=== PATIENT | male | born 1945 | race Caucasian/White ===

== ENCOUNTER 2018-11-12 00:01 | Emergency (ER) | payer OTHER, MEDICAID ==
[~2018-11-12] VITALS: Ht 167.6 cm; Wt 72.6 kg
[2018-11-12 00:05] VITALS: BP_SYST 134
[2018-11-12] MEDS ORDERED: INSU100V11 SQ (00:18)
[2018-11-12] MEDS ORDERED: AMLO5TAB4 PO (00:18)
[2018-11-12] MEDS ORDERED: GLU500 PO (00:18)
[2018-11-12] MEDS ORDERED: NEO/5DRO7 OP (00:18)
[2018-11-12] MEDS ORDERED: KETO60CR2 TP (00:18)
[2018-11-12] MEDS ORDERED: ASPI-1153 PO (00:18)
[2018-11-12] MEDS ORDERED: INSU100V7 IJ (00:18)
[2018-11-12] MEDS ORDERED: TRIA15CR3 TP (00:18)
[2018-11-12] MEDS ORDERED: LIP80 PO (00:18)
[2018-11-12] MEDS ORDERED: CLOP75TA32 PO (00:18)
[2018-11-12] MEDS ORDERED: IPRA3AMP9 INH (00:18)
[2018-11-12] MEDS ORDERED: PRO40 PO (00:18)
[2018-11-12] MEDS ORDERED: CORCR10 PO (00:18)
[2018-11-12] MEDS ORDERED: NACL 0.9% 1,000 ML IV ONE (01:07)
[2018-11-12 02:08] LABS: PLATELET COUNT (AUTO) 256 K/uL (130-430)
[2018-11-12 02:14] LABS: BASOPHILS % (AUTO) 0.3 % (0.0-2.0); EOSINOPHILS # (AUTO) 0.2 K/uL (0.0-0.4); EOSINOPHILS % (AUTO) 2.1 % (0.0-4.0); HEMATOCRIT 42.2 % (36-54); HEMOGLOBIN 13.5 g/dL (14.0-18.0); LYMPHOCYTES # (AUTO) 1.5 K/uL (1.0-5.5); LYMPHOCYTES % (AUTO) 13.9 % (20.5-51.5); MEAN CORPUSCULAR HEMOGLOBIN 29 pg (27-31); MEAN CORPUSCULAR HGB CONC 32 % (32-36); MEAN CORPUSCULAR VOLUME 89 fL (79.0-98.0); MONOCYTES # (AUTO) 1.1 K/uL (0.0-1.0); MONOCYTES % (AUTO) 10.6 % (1.7-9.3); NEUTROPHILS # (AUTO) 7.7 K/uL (1.8-7.7); NEUTROPHILS % (AUTO) 73.1 % (40.0-70.0); RED BLOOD CELL COUNT(AUTO) 4.72 MIL/uL (4.2-6.2); WHITE BLOOD COUNT (AUTO) 10.5 K/uL (4.8-10.8)
[2018-11-12 02:23] LABS: ALANINE AMINOTRANSFERASE 20 U/L (12-78); ALBUMIN 3.5 g/dL (3.4-4.8); ANION GAP 5 (5-15); ASPARTATE AMINOTRANSFERASE 15 U/L (10-37); CHLORIDE 102 mmol/L (98-107); CREATININE 0.65 mg/dL (0.55-1.30); GLUCOSE 111 mg/dL (70-99); LIPASE 106 U/L (73-393); SODIUM SERUM 140 mmol/L (136-145); TOTAL BILIRUBIN 0.2 mg/dL (0.0-1.0); UREA NITROGEN, BLOOD 19 mg/dL (8-21)
[2018-11-12 02:36] LABS: CALCIUM 8.5 mg/dL (8.4-11.0)
[2018-11-12] MEDS ORDERED: SULFAMETHOXAZOLE/TRIMETHOPR DS 1 TABLET PO ONE (04:00)
[2018-11-12 04:45] VITALS: BP_SYST 134
== END 2018-11-12 04:45 | disposition home or self-care (01) ==
LOC: SED 00:01
DX: R10.84 Generalized abdominal pain (principal); R30.0 Dysuria; R53.1 Weakness; E11.9 Type 2 diabetes mellitus without complications; I10 Essential (primary) hypertension; E78.00 Pure hypercholesterolemia, unspecified; F17.200 Nicotine dependence, unspecified, uncomplicated; Z71.6 Tobacco abuse counseling; Z88.0 Allergy status to penicillin; Z79.899 Other long term (current) drug therapy; Z79.82 Long term (current) use of aspirin
CPT/HCPCS: 36415; 80053; 83690-TC; 85025; 99284

== ENCOUNTER 2018-12-15 10:39 | Inpatient (IN) | payer OTHER, MEDICAID ==
[~2018-12-15] VITALS: Ht 165.1 cm; Wt 72.6 kg
[2018-12-15 10:39] VITALS: BP_SYST 146
[~2018-12-15 10:39] MED LIST: AMLO5TAB4 PO; ASPI-1153 PO; CLOP75TA32 PO; CORCR10 PO; GLU500 PO; INSU100V11 SQ; INSU100V7 IJ; IPRA3AMP9 INH; KETO60CR2 TP; LIP80 PO; NEO/5DRO7 OP; PRO40 PO; TRIA15CR3 TP
--- NOTE | 2018-12-15 10:40 | NUR ---
BROUGHT IN BY [facility], PLACED IN BED #[address] RT AND DR CALDWELL AT BEDSIDE.
[2018-12-15] MEDS ORDERED: methylPREDNISolone SOD SUCC/PF 62.5 MG/ML VIAL IVP ONE (10:45)
[2018-12-15] MEDS ORDERED: IPRATROPIUM/ALBUTEROL SULFATE 3 ML AMPUL.NEB (DUONEB) INH ONE (10:45)
--- NOTE | 2018-12-15 10:45 | NUR ---
Pt BIBA from [facility] c/o SOB. Pt states he is a smoker and smokes 3 cigarettes per day. Noted adventitious lung sounds. Pt arrived with 8L, and placed on 2L O2 via NC, currently saturating 95%. No other complaints or injuries per pt or noted.
[2018-12-15] MEDS ORDERED: MAGNESIUM SULFATE 50 ML IV ONE (11:00)
[2018-12-15 11:05] LABS: BASOPHILS % (AUTO) 0.3 % (0.0-2.0); EOSINOPHILS # (AUTO) 0.1 K/uL (0.0-0.4); EOSINOPHILS % (AUTO) 1.4 % (0.0-4.0); HEMATOCRIT 39.3 % (36-54); HEMOGLOBIN 12.2 g/dL (14.0-18.0); LYMPHOCYTES # (AUTO) 1.2 K/uL (1.0-5.5); LYMPHOCYTES % (AUTO) 17.9 % (20.5-51.5); MEAN CORPUSCULAR HEMOGLOBIN 27 pg (27-31); MEAN CORPUSCULAR HGB CONC 31 % (32-36); MEAN CORPUSCULAR VOLUME 87 fL (79.0-98.0); MONOCYTES # (AUTO) 0.8 K/uL (0.0-1.0); NEUTROPHILS # (AUTO) 4.8 K/uL (1.8-7.7); NEUTROPHILS % (AUTO) 68.4 % (40.0-70.0); PLATELET COUNT (AUTO) 217 K/uL (130-430); RED BLOOD CELL COUNT(AUTO) 4.51 MIL/uL (4.2-6.2); RED CELL DISTRIBUTION WIDTH 16.3 % (9.0-15.0)
[2018-12-15 11:21] LABS: CHLORIDE 100 mmol/L (98-107); CREATININE 0.82 mg/dL (0.55-1.30); GLUCOSE 168 mg/dL (70-99); POTASSIUM 4.2 mmol/L (3.5-5.1); SODIUM SERUM 138 mmol/L (136-145); UREA NITROGEN, BLOOD 21 mg/dL (8-21)
[2018-12-15 11:22] LABS: ANION GAP < 3 (5-15)
[2018-12-15 11:26] LABS: ALANINE AMINOTRANSFERASE 39 U/L (12-78); ALBUMIN 3.3 g/dL (3.4-4.8); ASPARTATE AMINOTRANSFERASE 20 U/L (10-37); TOTAL BILIRUBIN 0.3 mg/dL (0.0-1.0)
--- NOTE | 2018-12-15 11:32 | NUR ---
ER Dr. Benites at bedside examining patient.
--- NOTE | 2018-12-15 12:10 | NUR ---
per dr. granados, dr. gill contacted him regarding pt. Dr. granados paged back to speak to dr. clark regarding pt status for possible admission.
[2018-12-15] MEDS ORDERED: IPRA3AMP9 INH (12:32)
[2018-12-15] MEDS ORDERED: TYC3 PO (12:32)
[2018-12-15] MEDS ORDERED: GUAI-1081 PO (12:32)
--- NOTE | 2018-12-15 12:32 | NUR ---
Medication reconciliation completed with information provided by [facility]. Any prior medication reconciliation on file was reviewed and corrected.
--- NOTE | 2018-12-15 12:45 | NUR ---
Patient is unable to participate in end of life decisions making at this time. We are unable to contact family or power of personal injury attorney for healthcare and there are no code status forms on the chart. At this time the patient will be treated as full code on the basis of implied consent.
--- NOTE | 2018-12-15 12:47 | NUR ---
Belongings inventoried. Pt states no pain or distress at this time. Resting comfortably, currently on 2L O2 via NC.
--- NOTE | 2018-12-15 13:05 | NUR ---
ADMISSION NOTE Received patient from ER via millie, received report from MARIA G YANG. Patient admitted with diagnosis of COPD EXACERBATION. Patient oriented to hospital routine, call light, toileting and safety-patient verbalized understanding.
[2018-12-15] MEDS ORDERED: D5W 1,000 ML IV PRN (13:14)
[2018-12-15] MEDS ORDERED: ONDANSETRON HCL 4 MG/2 ML VIAL IVP PRN (13:15)
[2018-12-15] MEDS ORDERED: guaiFENesin 200 MG/10 ML UDC PO PRN (13:15)
[2018-12-15] MEDS ORDERED: GLUCOSE 15 GM GEL (in 37.5 GM TUBE) PO PRN (13:15)
[2018-12-15] MEDS ORDERED: ALBUTEROL SULFATE 0.083% 2.5 MG/3 ML VIAL.NEB INH PRN (13:15)
[2018-12-15] MEDS ORDERED: DEXTROSE 50% JECT 50 ML DISP.SYRIN IVP PRN (13:15)
[2018-12-15] MEDS ORDERED: IPRATROPIUM BROM 0.5 MG/2.5 ML VIAL.NEB (ATROVENT) INH PRN (13:15)
[2018-12-15] MEDS ORDERED: ACETAMINOPHEN 325 MG TABLET PO PRN (13:15)
[2018-12-15] MEDS ORDERED: ACETAMINOPHEN/CODEINE 300 MG-30 MG TABLET PO SCH (13:15)
[2018-12-15] MEDS ORDERED: ZOLPIDEM TARTRATE 5 MG TABLET PO PRN (13:15)
[2018-12-15] MEDS ORDERED: guaiFENesin/DEXTROMETHORPHAN 10 ML UDC PO PRN (13:15)
[2018-12-15] MEDS ORDERED: cloNIDine HCL 0.1 MG TABLET PO PRN (13:15)
--- NOTE | 2018-12-15 13:18 | NUR ---
Patient will be admitted to care of Dr. Sheehan. Admitted to telemetry unit. Will go to room 119A. Belongings list completed. Summary report printed. Report given at bedside.
[2018-12-15 13:19] VITALS: BP_SYST 119
[2018-12-15] MEDS ORDERED: ACETAMINOPHEN/CODEINE 300 MG-30 MG TABLET PO PRN (13:36)
--- NOTE | 2018-12-15 14:00 | NUR ---
Report received from AN SBAR report received from admission nurse, patient received lying comfortably in his bed, on 02 at 2lpm via NC, noted with congestion, denies any difficulty breathing. Alert, awake and verbally responsive. Denies any pain or discomfort at this time. IV line intact and in place. Discussed plan of care and importance of using call light, patient verbalized understanding. Call light within the reach. Bed alarm on, bed at lowest position. Will continue to monitor.
--- NOTE | 2018-12-15 14:03 | NUR ---
CONSULTATION CALLED FOR TRAY MALIK DR WILL BE COVER FOR DR FELIZ ORDER BY EMMY JEAN-BAPTISTE FOR CONSULT OF COPD SPOKE WITH LOS
--- NOTE | 2018-12-15 14:30 | NUR ---
Dr. Parmar called Received a call from Dr. Parmar notified regarding consult, no new order at this time. Addendum: 12/15/18 at 1852 by Jaime Watkins RN disregard, wrong time
[2018-12-15] MEDS: LEVOFLOXACIN 500 MG/D5W 100 ML IV SCH (14:35)
[2018-12-15] MEDS: NACL 0.9% 1,000 ML IV SCH (14:35)
[2018-12-15] MEDS: methylPREDNISolone SOD SUCC/PF 62.5 MG/ML VIAL IVP SCH ×2 (14:36→21:19)
[2018-12-15] MEDS: IPRATROPIUM BROM 0.5 MG/2.5 ML VIAL.NEB (ATROVENT) INH SCH ×2 (15:00→19:40)
[2018-12-15] MEDS: ALBUTEROL SULFATE 0.083% 2.5 MG/3 ML VIAL.NEB INH SCH ×2 (15:00→19:40)
[2018-12-15] MEDS: NEO/POLYMYX B SULF/DEXAMETH 5 ML OPHT. DROPS.SUSP OP SCH ×2 (15:00→21:00)
--- NOTE | 2018-12-15 16:30 | NUR ---
RN ROUNDS Patient remain to be alert, awake and verbally responsive. Denies any pain or discomfort at this time. IVF intact and in place, IVF infusing well. Bed at lowest position, bed alarm on . Call light within the reach.
--- NOTE | 2018-12-15 16:40 | NUR ---
Dr. Parmar called Received a call from Dr. Parmar notified regarding consult, no new order at this time.
[2018-12-15 17:45] VITALS: BP_SYST 112
[2018-12-15] MEDS: metFORMIN HCL 500 MG TABLET PO SCH (18:30)
--- NOTE | 2018-12-15 18:54 | NUR ---
Closing Notes Patient sitting at the edge of the bed, denies any pain or discomfort. On 02 at 2lpm via NC, no sob, no acute distress, still noted with slight congestion, respiration even and unlabored. IVF infusing well, IV line intact and in place. Fall precaution observed. Bed at lowest position. Bed alarm on. Will endorse to the next shift.
--- NOTE | 2018-12-15 19:25 | NUR ---
Opening note Received patient awake, AOx4. Patient is resting in bed and has 2L NC. IVF infusing via IV to LAC. He speaks Urdu and inquired about an oxygen extension for ambulation to restroom; I reminded him he has the urinal at bedside and was instructed on use of the call light. Bed is locked in lowest position, bed alarm on, side rails up 2x. Updated board and reviewed plan of care.
--- NOTE | 2018-12-15 19:47 | NUR ---
Breathing Tx Patient receiving breathing treatment given by RT.
[2018-12-15 20:00] VITALS: BP_SYST 132
--- NOTE | 2018-12-15 20:28 | NUR ---
Dr. Agata Parmar at bedside to evaluate patient.
[2018-12-15] MEDS: ATORVASTATIN 20 MG TABLET PO SCH (21:17)
[2018-12-15] MEDS: CARVEDILOL 6.25 MG TABLET (COREG) PO SCH (21:18)
--- NOTE | 2018-12-15 21:20 | NUR ---
Medications Due medications given. Patient swallowed tablets without difficulty. Educated on indications and side effects, he verbalized understanding. He requested lights off. safety precautions in place, call light w/in reach.
[2018-12-15 23:53] VITALS: BP_SYST 122
--- NOTE | 2018-12-16 00:24 | NUR ---
Rounds Patient is resting w/ eyes closed, nonlabored breathing, IVF infusing well. Call light w/in reach.
--- NOTE | 2018-12-16 02:20 | NUR ---
Rounds Patient is resting w/ eyes closed, symmetrical rise and fall of chest,nonlabored breathing. Call light w/in reach, continue to monitor.
[2018-12-16] MEDS: NACL 0.9% 1,000 ML IV SCH (04:37)
--- NOTE | 2018-12-16 04:40 | NUR ---
IVF IVF empty, hung new bag of NS and infusing as ordered at 80 ml/hr. Patient was coughing and was given Robitussin for cough as ordered. Will continue to monitor.
--- NOTE | 2018-12-16 06:15 | NUR ---
Paged Dr. Sheehan
[2018-12-16] MEDS: methylPREDNISolone SOD SUCC/PF 62.5 MG/ML VIAL IVP SCH (06:36)
--- NOTE | 2018-12-16 06:45 | NUR ---
Closing note Due medication given, solumedrol. Awaiting call back from Dr. Sheehan to request order for fingerstick blood glucose test. Presently FBGT done with result of 139 mg/dL. IVF infusing as ordered. Needs met throughout shift, Will endorse to oncoming nurse.
--- NOTE | 2018-12-16 06:59 | NUR ---
Nutrition Update Evan Scale 18 noted. Pt admitted for Acute COPD exacerbation Diet: [facility] BMI: 26.6 kg/m2 RD to follow per nutrition care standards.
[2018-12-16] MEDS: ALBUTEROL SULFATE 0.083% 2.5 MG/3 ML VIAL.NEB INH SCH ×4 (07:09→20:13)
[2018-12-16] MEDS: IPRATROPIUM BROM 0.5 MG/2.5 ML VIAL.NEB (ATROVENT) INH SCH ×4 (07:09→20:13)
[2018-12-16 07:24] LABS: ANION GAP 2 (5-15); CALCIUM 8.1 mg/dL (8.4-11.0); CHLORIDE 100 mmol/L (98-107); CREATININE 0.73 mg/dL (0.55-1.30); GLUCOSE 152 mg/dL (70-99); POTASSIUM 4.5 mmol/L (3.5-5.1); SODIUM SERUM 139 mmol/L (136-145); UREA NITROGEN, BLOOD 22 mg/dL (8-21)
--- NOTE | 2018-12-16 07:30 | NUR ---
OPENING NOTES: RECEIVED PATIENT FROM STRING CUTTER NURSE. PATIENT IS AWAKE AND ALERT x4 LAYING DOWN IN BED. PATIENT IS TOLERATING OXYGEN ON 2 L NASAL CANNULA. IV SITE IS PATENT WITH NO SIGNS OF INFILTRATION AND RUNNING FLUIDS ORDERED. PATIENT IN STABLE CONDITION. SAFETY, FALL AND ASPIRATION PRECAUTIONS ARE IN PLACE. BED LOCKED IN LOWEST POSITION WITH CALL LIGHT IN REACH. WILL CONTINUE TO MONITOR PATIENT FOR ANY CHANGES.
[2018-12-16 08:07] VITALS: BP_SYST 133
[2018-12-16] MEDS: LEVOFLOXACIN 500 MG/D5W 100 ML IV SCH (08:26)
[2018-12-16] MEDS: PANTOPRAZOLE SODIUM 40 MG TAB PO SCH (08:26)
[2018-12-16] MEDS: NEO/POLYMYX B SULF/DEXAMETH 5 ML OPHT. DROPS.SUSP OP SCH ×3 (08:26→21:00)
[2018-12-16] MEDS: metFORMIN HCL 500 MG TABLET PO SCH ×2 (08:27→17:26)
[2018-12-16] MEDS: CLOPIDOGREL BISULFATE 75 MG TABLET PO SCH (08:27)
[2018-12-16] MEDS: ASPIRIN 81 MG TABLET(ECOTRIN) PO SCH (08:27)
[2018-12-16] MEDS: amLODIPine BESYLATE 5 MG TABLET PO SCH (08:27)
[2018-12-16] MEDS: CARVEDILOL 6.25 MG TABLET (COREG) PO SCH ×2 (08:28→21:01)
[2018-12-16] MEDS ORDERED: KETOCONAZOLE 2%, 60 GM TOPICAL CREAM. (NIZORAL) TP SCH ×2 (09:00→11:08)
--- NOTE | 2018-12-16 09:10 | NUR ---
MD CALLED: SPOKE WITH DR. BOOTH REGARDING PATIENT NEEDING AN ORDER FOR ACCUCHECKS AND DVT PROPHYLAXIS. MD AWARE OF PATIENT'S CONDITION. NEW ORDERS GIVEN.
--- NOTE | 2018-12-16 10:15 | NUR ---
RN ROUNDS: PATIENT IS AWAKE AND ALERT x4 LAYING IN BED. PATIENT IS TOLERATING OXYGEN AT 2 L NASAL CANNULA. PATIENT DENIES ANY PAIN AT THE MOMENT. PATIENT IN STABLE CONDITION. WILL CONTINUE TO MONITOR PATIENT FOR ANY CHANGES.
[2018-12-16 11:28] VITALS: BP_SYST 118
[2018-12-16] MEDS: INSULIN LISPRO SLIDING SCALE 100 UNITS/ML VIAL (humaLOG) SUBCUT PRN ×2 (11:33→21:17)
--- NOTE | 2018-12-16 12:15 | NUR ---
RN ROUNDS: PATIENT IS AWAKE AND ALERT x 4 LAYING IN BED. NO SIGNS OF DISTRESS OR SHORTNESS OF BREATH NOTED. PATIENT TOLERATING OXYGEN AT 2 L NASAL CANNULA. PATIENT IN STABLE CONDITION. WILL CONTINUE TO MONITOR PATIENT FOR ANY CHANGES.
[2018-12-16] MEDS: TRIAMCINOLONE ACETONIDE 0.1% 15 GM CREAM.GM. TP SCH ×2 (12:54→21:00)
--- NOTE | 2018-12-16 12:55 | NUR ---
PAIN: PATIENT STATES HE IS HAVING ABDOMINAL PAIN 6/10. PRN PAIN MEDS GIVEN. WILL FOLLOW UP FOR EFFECTIVENESS.
[2018-12-16] MEDS ORDERED: methylPREDNISolone SOD SUCC/PF 62.5 MG/ML VIAL IVP SCH (14:00)
--- NOTE | 2018-12-16 14:20 | NUR ---
RN ROUNDS: PATIENT IS AWAKE AND ALERT x4 LAYING DOWN IN BED. PATIENT IS TOLERATING OXYGEN ON 2 L VIA NASAL CANNULA. PATIENT DENIES ANY PAIN AT THE MOMENT. PATIENT IN STABLE CONDITION. WILL CONTINUE TO MONITOR PATIENT FOR ANY CHANGES.
[2018-12-16] MEDS: methylPREDNISolone SOD SUCC 40 MG/ML VIAL IVP SCH ×2 (14:33→21:49)
[2018-12-16 15:31] VITALS: BP_SYST 124
--- NOTE | 2018-12-16 16:10 | NUR ---
RN ROUNDS: PATIENT IS AWAKE AND ALERT x4 LAYING IN BED. NO SIGNS OF DISTRESS OR SHORTNESS OF BREATH NOTED. PATIENT TOLERATING OXYGEN AT 2 L NASAL CANNULA. PATIENT IN STABLE CONDITION. WILL CONTINUE TO MONITOR PATIENT FOR ANY CHANGES.
--- NOTE | 2018-12-16 18:35 | NUR ---
CLOSING NOTES: PATIENT IS AWAKE AND ALERT x4 LAYING DOWN IN BED. PATIENT IS TOLERATING OXYGEN ON 2 L NASAL CANNULA. IV SITE IS PATENT WITH NO SIGNS OF INFILTRATION. PATIENT DENIES ANY PAIN AT THE MOMENT. NO SIGNS OF DISTRESS OR SHORTNESS OF BREATH NOTED. PATIENT IN STABLE CONDITION. SAFETY, FALL AND ASPIRATION PRECAUTIONS ARE IN PLACE. BED LOCKED IN LOWEST POSITION WITH CALL LIGHT IN REACH. WILL ENDORSE PATIENT CARE TO ONCOMING HEAVY EQUIPMENT MECHANIC NURSE.
[2018-12-16 20:00] VITALS: BP_SYST 113
--- NOTE | 2018-12-16 20:00 | NUR ---
ASSUMED CARE. RECEIVED ALERT,ORIENTED,WELSH SPEAKING ONLY. AFEBRILE, NOT IN ACUTE DISTRESS. NO PAIN OR DISCOMFORT NOTED. WITH SALINE LOCK TO THE LEFT AC # 20 INTACT. SAO2=93% ON 2 LPM O2 VIA NC. RT AT BEDSIDE TO GIVE BREATHING TREATMENT. SINUS RHYTHM @ 80'S/MINUTE ON THE NURSING SURGICAL SERVICES DIRECTOR. VITAL SIGNS ARE OTHERWISE STABLE. WILL CONTINUE TO MONITOR. NEEDS ATTENDED.
[2018-12-16] MEDS: ATORVASTATIN 20 MG TABLET PO SCH (21:01)
--- NOTE | 2018-12-16 21:01 | NUR ---
DUE MEDICATIONS GIVEN. REFUSED. TRIAMCINOLONE CREAM. MAXITROL OPHTHALMIC SOLUTION NOT AVAILABLE SEBASTIEN PYXIS AND PT'S CASSETTE. WILL ENDORSE TO AM SHIFT.
--- NOTE | 2018-12-16 21:17 | NUR ---
FINGERSTICK BLOOD SUGAR XHRTV=854. 2 UNITS OF HUMALOG SQ GIVEN PER SLIDING SCALE.
--- NOTE | 2018-12-17 | NUR ---
ASLEEP, NOT IN ANY KIND OF DISTRESS. NO PAIN OR DISCOMFORT NOTED. SIDE RAILS UP,CALL LIGHT WITHIN REACH.KEPT WARM AND COMFORTABLE.
[2018-12-17 01:03] VITALS: BP_SYST 111
--- NOTE | 2018-12-17 04:00 | NUR ---
ASLEEP,NOT IN ACUTE DISTRESS. NO PAIN OR DISCOMFORT. NO CHANGE IN CONDITION. WILL CONTINUE TO MONITOR.
[2018-12-17] MEDS: methylPREDNISolone SOD SUCC 40 MG/ML VIAL IVP SCH (06:05)
--- NOTE | 2018-12-17 06:05 | NUR ---
AWAKE, DUE MEDICATION GIVEN.
--- NOTE | 2018-12-17 06:25 | NUR ---
FINGERSTICK BLOOD SUGAR CHECK-137. NO INSULIN COVERAGE NEEDED. Addendum: 12/17/18 at 0650 by [facility] KARL TEACHER OF THE HEARING IMPAIRED CORRECTION: 148.
[2018-12-17] MEDS: IPRATROPIUM BROM 0.5 MG/2.5 ML VIAL.NEB (ATROVENT) INH SCH ×2 (07:17→11:10)
[2018-12-17] MEDS: ALBUTEROL SULFATE 0.083% 2.5 MG/3 ML VIAL.NEB INH SCH ×2 (07:17→11:10)
--- NOTE | 2018-12-17 07:20 | NUR ---
ENDORSED CARE TO HUGH GARLAND.
--- NOTE | 2018-12-17 07:57 | NUR ---
OPENING NOTES: RECEIVED PATIENT FROM REAL ESTATE LOAN PROCESSOR NURSE. PATIENT IS AWAKE AND ALERT x4 LAYING DOWN IN BED. PATIENT DENIES ANY PAIN AT THE MOMENT. NO SIGNS OF DISTRESS OR SHORTNESS OF BREATH NOTED. PATIENT IS TOLERATING OXYGEN AT 2L NASAL CANNULA. IV SITE IS PATENT WITH NO SIGNS OF INFILTRATION. PATIENT IN STABLE CONDITION. SAFETY, FALL AND ASPIRATION PRECAUTIONS ARE IN PLACE. BED LOCKED IN LOWEST POSITION WITH CALL LIGHT IN REACH. WILL CONTINUE TO MONITOR PATIENT FOR ANY CHANGES.
[2018-12-17 08:02] VITALS: BP_SYST 123
[2018-12-17] MEDS: NEO/POLYMYX B SULF/DEXAMETH 5 ML OPHT. DROPS.SUSP OP SCH ×2 (09:00→15:00)
[2018-12-17] MEDS: TRIAMCINOLONE ACETONIDE 0.1% 15 GM CREAM.GM. TP SCH (09:00)
[2018-12-17] MEDS: LEVOFLOXACIN 500 MG/D5W 100 ML IV SCH (09:03)
[2018-12-17] MEDS: CLOPIDOGREL BISULFATE 75 MG TABLET PO SCH (09:03)
[2018-12-17] MEDS: CARVEDILOL 6.25 MG TABLET (COREG) PO SCH (09:03)
[2018-12-17] MEDS: metFORMIN HCL 500 MG TABLET PO SCH (09:03)
[2018-12-17] MEDS: ASPIRIN 81 MG TABLET(ECOTRIN) PO SCH (09:03)
[2018-12-17] MEDS: amLODIPine BESYLATE 5 MG TABLET PO SCH (09:04)
[2018-12-17] MEDS: PANTOPRAZOLE SODIUM 40 MG TAB PO SCH (09:04)
--- NOTE | 2018-12-17 10:05 | NUR ---
RN ROUNDS: PATIENT IS AWAKE AND ALERT x4 SITTING AT THE SIDE OF THE BED. PATIENT DENIES ANY PAIN AT THE MOMENT. PATIENT IS TOLERATING OXYGEN AT 2 L VIA NASAL CANNULA. PATIENT IN STABLE CONDITION. WILL CONTINUE TO MONITOR PATIENT FOR ANY CHANGES.
[2018-12-17] MEDS: INSULIN LISPRO SLIDING SCALE 100 UNITS/ML VIAL (humaLOG) SUBCUT PRN (11:41)
--- NOTE | 2018-12-17 12:32 | NUR ---
RN ROUNDS: PATIENT IS AWAKE AND ALERT x4 LAYING IN BED. NO SIGNS OF DISTRESS OR SHORTNESS OF BREATH NOTED. PATIENT DENIES ANY PAIN AT THE MOMENT. PATIENT IN STABLE CONDITION. WILL CONTINUE TO MONITOR PATIENT FOR ANY CHANGES.
[2018-12-17 12:47] VITALS: BP_SYST 142
[2018-12-17] MEDS ORDERED: LEVO750T45 PO (12:55)
[2018-12-17] MEDS ORDERED: PRED20TA PO (12:56)
[2018-12-17 13:15] VITALS: BP_SYST 142
--- NOTE | 2018-12-17 14:10 | NUR ---
RN ROUNDS: PATIENT IS SITTING AT THE SIDE OF THE BED READY TO BE PICKED UP. PATIENT DENIES ANY PAIN AT THE MOMENT. NO SIGNS OF DISTRESS OR SHORTNESS OF BREATH NOTED. PATIENT IN STABLE CONDITION. WILL CONTINUE TO MONITOR PATIENT FOR ANY CHANGES.
--- NOTE | 2018-12-17 14:50 | NUR ---
DISCHARGE: CALLED [facility] AND SPOKE WITH SABINA REGARDING MANAGER OPERATIONS AND PROCUREMENT FOR THE PATIENT. SABNIA STATED THE CAR SHOULD BE HERE AFTER 2. WILL CONTINUE TO FOLLOW UP WITH SABINA.
--- NOTE | 2018-12-17 15:00 | NUR ---
D/C Patient: Patient given medication reconciliation form and D/C instructions. Exit Care provided. Patient verbalized understanding. MD discussed with patient the results and treatment provided. Ambulatory with steady gait but taken outside via wheelchair for discharge to home. Patient in stable condition, ID band removed. IV catheter removed, intact and dressing applied, no active bleeding. Patient educated on pain management. All belongings sent with patient.
[2018-12-17] MEDS ORDERED: PREDNISONE 20 MG TABLET PO SCH (21:00)
[2018-12-18] MEDS ORDERED: LEVOFLOXACIN 500 MG TABLET PO SCH (10:00)
--- NOTE | 2018-12-19 11:09 | NUR ---
DISCHARGE FOLLOW UP PHONE CALL CM/ DISCHARGE PHONED PATIENT, . LEFT A MESSAGE WITH MEDIA SALES CONSULTANT.
== END 2018-12-17 15:20 | disposition home or self-care (01) | DRG 189 ==
LOC: SED 10:39 → STU 13:10
PROVIDERS: ADMIT Internal Medicine; ATTEND Internal Medicine
DX: J96.21 Acute and chronic respiratory failure with hypoxia (principal); J44.0 Chronic obstructive pulmonary disease with (acute) lower respiratory infection; J44.1 Chronic obstructive pulmonary disease with (acute) exacerbation; J20.9 Acute bronchitis, unspecified; E11.9 Type 2 diabetes mellitus without complications; E78.00 Pure hypercholesterolemia, unspecified; F17.210 Nicotine dependence, cigarettes, uncomplicated; I10 Essential (primary) hypertension; K21.9 Gastro-esophageal reflux disease without esophagitis; I25.10 Atherosclerotic heart disease of native coronary artery without angina pectoris; Z95.1 Presence of aortocoronary bypass graft; Z88.0 Allergy status to penicillin
CPT/HCPCS: 36415; 36600; 71045; 80048; 80053; 82803-TC; 82962; 85025; 87040-TC; 93005; 94640; 94760; 96365; 96366; 96375; 99291; G0378; J1030; J1956; J2930; J3475; J7030; J7613; J7620

== ENCOUNTER 2019-02-08 18:17 | Inpatient (IN) | payer OTHER, MEDICAID ==
[~2019-02-08] VITALS: Ht 167.6 cm; Wt 75.4 kg
[~2019-02-08 18:17] MED LIST changes: +GUAI-1081 PO; +LEVO750T45 PO; +PRED20TA PO; +TYC3 PO
[2019-02-08 18:18] VITALS: BP_SYST 126
[2019-02-08] MEDS ORDERED: NACL 0.9% 1,000 ML IV ONE (18:22)
[2019-02-08] MEDS ORDERED: ALBUTEROL SULFATE 0.083% 2.5 MG/3 ML VIAL.NEB INH ONE (18:30)
[2019-02-08] MEDS ORDERED: IPRATROPIUM BROM 0.5 MG/2.5 ML VIAL.NEB (ATROVENT) INH ONE (18:30)
[2019-02-08] MEDS ORDERED: methylPREDNISolone SOD SUCC/PF 62.5 MG/ML VIAL IVP ONE (18:30)
[2019-02-08 18:43] LABS: BASOPHILS % (AUTO) 0.4 % (0.0-2.0); EOSINOPHILS % (AUTO) 0.3 % (0.0-4.0); HEMATOCRIT 36.5 % (36-54); HEMOGLOBIN 11.4 g/dL (14.0-18.0); LYMPHOCYTES # (AUTO) 0.8 K/uL (1.0-5.5); LYMPHOCYTES % (AUTO) 8.6 % (20.5-51.5); MEAN CORPUSCULAR HEMOGLOBIN 27 pg (27-31); MEAN CORPUSCULAR HGB CONC 31 % (32-36); MEAN CORPUSCULAR VOLUME 86 fL (79.0-98.0); MONOCYTES # (AUTO) 1.3 K/uL (0.0-1.0); NEUTROPHILS # (AUTO) 6.7 K/uL (1.8-7.7); NEUTROPHILS % (AUTO) 75.7 % (40.0-70.0); PLATELET COUNT (AUTO) 254 K/uL (130-430); RED BLOOD CELL COUNT(AUTO) 4.25 MIL/uL (4.2-6.2); WHITE BLOOD COUNT (AUTO) 8.8 K/uL (4.8-10.8)
[2019-02-08 19:34] LABS: ALANINE AMINOTRANSFERASE 18 U/L (12-78); ALBUMIN 2.1 g/dL (3.4-4.8); AMYLASE 23 U/L (0-100); ASPARTATE AMINOTRANSFERASE 10 U/L (10-37); CHLORIDE 107 mmol/L (98-107); CREATININE 0.66 mg/dL (0.55-1.30); GLUCOSE 143 mg/dL (70-99); LIPASE 55 U/L (73-393); POTASSIUM 3.3 mmol/L (3.5-5.1); SODIUM SERUM 141 mmol/L (136-145); TOTAL BILIRUBIN 0.3 mg/dL (0.0-1.0); UREA NITROGEN, BLOOD 16 mg/dL (8-21)
[2019-02-08 19:47] LABS: ANION GAP < 3 (5-15)
[2019-02-08 19:49] LABS: CALCIUM 6.4 mg/dL (8.4-11.0)
[2019-02-08 20:08] LABS: INR 1.1 (0.80-1.20); PROTHROMBIN TIME 11.1 SECS (9.5-12.5)
[2019-02-08] MEDS ORDERED: guaiFENesin/DEXTROMETHORPHAN 118 ML PO PRN (20:15)
[2019-02-08] MEDS ORDERED: IPRATROPIUM/ALBUTEROL SULFATE 3 ML AMPUL.NEB (DUONEB) INH PRN (20:15)
[2019-02-08] MEDS ORDERED: AZITHROMYCIN 500 MG in NS 250 ML IV ONE (20:15)
[2019-02-08] MEDS ORDERED: LEVOFLOXACIN 500 MG/D5W 100 ML IV ONE (20:15)
[2019-02-08] MEDS ORDERED: ACETAMINOPHEN/CODEINE 300 MG-30 MG TABLET PO PRN (20:15)
[2019-02-08] MEDS ORDERED: NACL 0.9% 1,000 ML IV SCH (20:17)
[2019-02-08] MEDS ORDERED: D5W 1,000 ML IV PRN (20:22)
[2019-02-08] MEDS ORDERED: NITROGLYCERIN 0.4 MG TAB.SUBL SL PRN (20:30)
[2019-02-08] MEDS ORDERED: ACETAMINOPHEN 325 MG TABLET PO PRN (20:30)
[2019-02-08] MEDS ORDERED: DEXTROSE 50% JECT 50 ML DISP.SYRIN IVP PRN (20:30)
[2019-02-08] MEDS ORDERED: ZOLPIDEM TARTRATE 5 MG TABLET PO PRN (20:30)
[2019-02-08] MEDS ORDERED: GLUCOSE 15 GM GEL (in 37.5 GM TUBE) PO PRN (20:30)
[2019-02-08] MEDS ORDERED: ONDANSETRON HCL 4 MG/2 ML VIAL IVP PRN (20:30)
[2019-02-08] MEDS: TRIAMCINOLONE ACETONIDE 0.025% 15 GM CREAM.GM. TP SCH (21:00)
[2019-02-08] MEDS: NEO/POLYMYX B SULF/DEXAMETH 5 ML OPHT. DROPS.SUSP OP SCH (21:00)
[2019-02-08] MEDS ORDERED: CARVEDILOL PHOSPHATE 10 MG CPMP.24HR ( COREG CR) PO SCH (21:00)
[2019-02-08] MEDS ORDERED: guaiFENesin/DEXTROMETHORPHAN 10 ML UDC PO PRN (21:45)
[2019-02-08 21:55] VITALS: BP_SYST 115
[2019-02-08] MEDS ORDERED: methylPREDNISolone SOD SUCC/PF 62.5 MG/ML VIAL IVP SCH ×2 (22:00→23:30)
[2019-02-08] MEDS: ATORVASTATIN 20 MG TABLET PO SCH (22:22)
[2019-02-08] MEDS: HEPARIN SODIUM,PORCINE 5000 UNITS/ML VIAL SUBCUT SCH (22:25)
[2019-02-08] MEDS: INSULIN LISPRO SLIDING SCALE 100 UNITS/ML VIAL (humaLOG) SUBCUT PRN (23:02)
[2019-02-09] VITALS: BP_SYST 109
[2019-02-09 00:30] VITALS: BP_SYST 115
[2019-02-09] MEDS ORDERED: methylPREDNISolone SOD SUCC/PF 62.5 MG/ML VIAL IVP SCH ×2 (00:30→06:00)
[2019-02-09] MEDS: IPRATROPIUM/ALBUTEROL SULFATE 3 ML AMPUL.NEB (DUONEB) INH SCH ×7 (00:49→23:30)
[2019-02-09] MEDS: PANTOPRAZOLE SODIUM 40 MG TAB PO SCH (06:31)
[2019-02-09] MEDS: INSULIN LISPRO SLIDING SCALE 100 UNITS/ML VIAL (humaLOG) SUBCUT PRN ×4 (06:41→21:12)
[2019-02-09] MEDS: ASPIRIN 81 MG TABLET(ECOTRIN) PO SCH (08:24)
[2019-02-09] MEDS: CLOPIDOGREL BISULFATE 75 MG TABLET PO SCH (08:24)
[2019-02-09] MEDS: HEPARIN SODIUM,PORCINE 5000 UNITS/ML VIAL SUBCUT SCH ×2 (08:28→21:06)
[2019-02-09] MEDS: KETOCONAZOLE 2%, 60 GM TOPICAL CREAM. (NIZORAL) TP SCH (08:29)
[2019-02-09] MEDS: metFORMIN HCL 500 MG TABLET PO SCH ×2 (08:29→17:25)
[2019-02-09] MEDS: NEO/POLYMYX B SULF/DEXAMETH 5 ML OPHT. DROPS.SUSP OP SCH ×3 (08:31→21:09)
[2019-02-09] MEDS: INSULIN GLARGINE 100 UNITS/ML 10 ML VIAL SUBCUT SCH (08:33)
[2019-02-09] MEDS: amLODIPine BESYLATE 5 MG TABLET PO SCH (09:00)
[2019-02-09] MEDS: CARVEDILOL 6.25 MG TABLET (COREG) PO SCH ×2 (09:00→21:10)
[2019-02-09 11:59] LABS: ALANINE AMINOTRANSFERASE 20 U/L (12-78); ALBUMIN 2.1 g/dL (3.4-4.8); ASPARTATE AMINOTRANSFERASE 16 U/L (10-37); BILIRUBIN,DIRECT < 0.1 mg/dL (0.0-0.3); TOTAL BILIRUBIN 0.2 mg/dL (0.0-1.0)
[2019-02-09] MEDS ORDERED: CALCIUM 600/VIT D PO SCH (12:00)
[2019-02-09] MEDS ORDERED: CALCIUM CARBONATE/VITAMIN D3 1 TAB TABLET PO ONE (12:15)
[2019-02-09 12:33] VITALS: BP_SYST 119
[2019-02-09] MEDS: methylPREDNISolone SOD SUCC 40 MG/ML VIAL IVP SCH ×2 (13:10→21:09)
[2019-02-09] MEDS: TRIAMCINOLONE ACETONIDE 0.025% 15 GM CREAM.GM. TP SCH ×2 (13:14→21:00)
[2019-02-09 16:25] VITALS: BP_SYST 117
[2019-02-09 21:00] VITALS: BP_SYST 119
[2019-02-09] MEDS: LEVOFLOXACIN 500 MG/D5W 100 ML IV SCH (21:05)
[2019-02-09] MEDS: CALCIUM CARBONATE/VITAMIN D3 1 TAB TABLET PO SCH (21:09)
[2019-02-09] MEDS: ATORVASTATIN 20 MG TABLET PO SCH (21:10)
[2019-02-10 00:02] VITALS: BP_SYST 123
[2019-02-10] MEDS: IPRATROPIUM/ALBUTEROL SULFATE 3 ML AMPUL.NEB (DUONEB) INH SCH ×6 (03:00→23:00)
[2019-02-10] MEDS: PANTOPRAZOLE SODIUM 40 MG TAB PO SCH (06:10)
[2019-02-10] MEDS: methylPREDNISolone SOD SUCC 40 MG/ML VIAL IVP SCH ×3 (06:11→21:17)
[2019-02-10] MEDS: INSULIN LISPRO SLIDING SCALE 100 UNITS/ML VIAL (humaLOG) SUBCUT PRN ×4 (06:15→21:19)
[2019-02-10 07:43] LABS: BASOPHILS % (AUTO) 0.1 % (0.0-2.0); HEMATOCRIT 36.3 % (36-54); HEMOGLOBIN 11.1 g/dL (14.0-18.0); LYMPHOCYTES # (AUTO) 0.6 K/uL (1.0-5.5); LYMPHOCYTES % (AUTO) 5.9 % (20.5-51.5); MEAN CORPUSCULAR HEMOGLOBIN 26 pg (27-31); MEAN CORPUSCULAR HGB CONC 31 % (32-36); MEAN CORPUSCULAR VOLUME 85 fL (79.0-98.0); MONOCYTES # (AUTO) 0.7 K/uL (0.0-1.0); MONOCYTES % (AUTO) 6.4 % (1.7-9.3); NEUTROPHILS # (AUTO) 9.1 K/uL (1.8-7.7); NEUTROPHILS % (AUTO) 87.6 % (40.0-70.0); PLATELET COUNT (AUTO) 263 K/uL (130-430); RED BLOOD CELL COUNT(AUTO) 4.25 MIL/uL (4.2-6.2); RED CELL DISTRIBUTION WIDTH 18.1 % (9.0-15.0); WHITE BLOOD COUNT (AUTO) 10.4 K/uL (4.8-10.8)
[2019-02-10 07:50] LABS: ALANINE AMINOTRANSFERASE 13 U/L (12-78); ALBUMIN 2.4 g/dL (3.4-4.8); ANION GAP 0 (5-15); ASPARTATE AMINOTRANSFERASE 11 U/L (10-37); CHLORIDE 100 mmol/L (98-107); CREATININE 0.65 mg/dL (0.55-1.30); GLUCOSE 176 mg/dL (70-99); POTASSIUM 4.3 mmol/L (3.5-5.1); SODIUM SERUM 139 mmol/L (136-145); TOTAL BILIRUBIN 0.3 mg/dL (0.0-1.0); UREA NITROGEN, BLOOD 21 mg/dL (8-21)
[2019-02-10 08:00] VITALS: BP_SYST 132
[2019-02-10] MEDS: CALCIUM CARBONATE/VITAMIN D3 1 TAB TABLET PO SCH ×2 (08:09→21:14)
[2019-02-10] MEDS: CLOPIDOGREL BISULFATE 75 MG TABLET PO SCH (08:09)
[2019-02-10] MEDS: metFORMIN HCL 500 MG TABLET PO SCH ×2 (08:10→17:06)
[2019-02-10] MEDS: ASPIRIN 81 MG TABLET(ECOTRIN) PO SCH (08:10)
[2019-02-10] MEDS: CARVEDILOL 6.25 MG TABLET (COREG) PO SCH ×2 (08:11→21:14)
[2019-02-10] MEDS: TRIAMCINOLONE ACETONIDE 0.025% 15 GM CREAM.GM. TP SCH ×3 (08:11→21:17)
[2019-02-10] MEDS: KETOCONAZOLE 2%, 60 GM TOPICAL CREAM. (NIZORAL) TP SCH (08:11)
[2019-02-10] MEDS: NEO/POLYMYX B SULF/DEXAMETH 5 ML OPHT. DROPS.SUSP OP SCH ×3 (08:12→21:11)
[2019-02-10] MEDS: amLODIPine BESYLATE 5 MG TABLET PO SCH (08:12)
[2019-02-10] MEDS: HEPARIN SODIUM,PORCINE 5000 UNITS/ML VIAL SUBCUT SCH ×2 (08:13→21:19)
[2019-02-10] MEDS: INSULIN GLARGINE 100 UNITS/ML 10 ML VIAL SUBCUT SCH (08:15)
[2019-02-10] MEDS ORDERED: MAGNESIUM SULFATE 50 ML IV ONE (09:15)
[2019-02-10 11:22] VITALS: BP_SYST 127
[2019-02-10 15:19] VITALS: BP_SYST 127
[2019-02-10 19:50] VITALS: BP_SYST 132
[2019-02-10] MEDS: LEVOFLOXACIN 500 MG/D5W 100 ML IV SCH (21:09)
[2019-02-10] MEDS: ATORVASTATIN 20 MG TABLET PO SCH (21:15)
[2019-02-11] VITALS: BP_SYST 128
[2019-02-11] MEDS: IPRATROPIUM/ALBUTEROL SULFATE 3 ML AMPUL.NEB (DUONEB) INH SCH ×5 (03:36→19:42)
[2019-02-11] MEDS: PANTOPRAZOLE SODIUM 40 MG TAB PO SCH (06:06)
[2019-02-11] MEDS: methylPREDNISolone SOD SUCC 40 MG/ML VIAL IVP SCH ×3 (06:06→21:47)
[2019-02-11 08:00] VITALS: BP_SYST 131
[2019-02-11] MEDS: KETOCONAZOLE 2%, 60 GM TOPICAL CREAM. (NIZORAL) TP SCH (08:37)
[2019-02-11] MEDS: TRIAMCINOLONE ACETONIDE 0.025% 15 GM CREAM.GM. TP SCH ×2 (08:37→21:00)
[2019-02-11] MEDS: INSULIN GLARGINE 100 UNITS/ML 10 ML VIAL SUBCUT SCH (08:41)
[2019-02-11] MEDS: HEPARIN SODIUM,PORCINE 5000 UNITS/ML VIAL SUBCUT SCH ×2 (08:42→21:56)
[2019-02-11] MEDS: CLOPIDOGREL BISULFATE 75 MG TABLET PO SCH (08:42)
[2019-02-11] MEDS: NEO/POLYMYX B SULF/DEXAMETH 5 ML OPHT. DROPS.SUSP OP SCH ×3 (08:42→21:49)
[2019-02-11] MEDS: ASPIRIN 81 MG TABLET(ECOTRIN) PO SCH (08:43)
[2019-02-11] MEDS: CALCIUM CARBONATE/VITAMIN D3 1 TAB TABLET PO SCH ×2 (08:43→21:47)
[2019-02-11] MEDS: metFORMIN HCL 500 MG TABLET PO SCH ×2 (08:43→17:04)
[2019-02-11] MEDS: CARVEDILOL 6.25 MG TABLET (COREG) PO SCH ×2 (08:43→21:44)
[2019-02-11] MEDS: amLODIPine BESYLATE 5 MG TABLET PO SCH (08:43)
[2019-02-11] MEDS ORDERED: MAGNESIUM SULFATE 50 ML IV ONE (10:45)
[2019-02-11 11:19] VITALS: BP_SYST 131
[2019-02-11] MEDS: INSULIN LISPRO SLIDING SCALE 100 UNITS/ML VIAL (humaLOG) SUBCUT PRN ×2 (11:20→22:03)
[2019-02-11 15:00] VITALS: BP_SYST 116
[2019-02-11 19:50] VITALS: BP_SYST 122
[2019-02-11] MEDS: ATORVASTATIN 20 MG TABLET PO SCH (21:45)
[2019-02-11] MEDS: LEVOFLOXACIN 500 MG/D5W 100 ML IV SCH (21:48)
[2019-02-12] VITALS (7 sets, daily range): BP systolic 121–141
[2019-02-12] MEDS: IPRATROPIUM/ALBUTEROL SULFATE 3 ML AMPUL.NEB (DUONEB) INH SCH ×7 (00:03→23:59)
[2019-02-12] MEDS: methylPREDNISolone SOD SUCC 40 MG/ML VIAL IVP SCH ×3 (06:10→21:23)
[2019-02-12] MEDS: PANTOPRAZOLE SODIUM 40 MG TAB PO SCH (06:10)
[2019-02-12] MEDS: INSULIN LISPRO SLIDING SCALE 100 UNITS/ML VIAL (humaLOG) SUBCUT PRN ×4 (06:17→21:44)
[2019-02-12] MEDS: KETOCONAZOLE 2%, 60 GM TOPICAL CREAM. (NIZORAL) TP SCH (08:23)
[2019-02-12] MEDS: TRIAMCINOLONE ACETONIDE 0.025% 15 GM CREAM.GM. TP SCH ×2 (08:23→21:00)
[2019-02-12] MEDS: CALCIUM CARBONATE/VITAMIN D3 1 TAB TABLET PO SCH ×2 (08:27→21:22)
[2019-02-12] MEDS: NEO/POLYMYX B SULF/DEXAMETH 5 ML OPHT. DROPS.SUSP OP SCH ×3 (08:27→21:24)
[2019-02-12] MEDS: CLOPIDOGREL BISULFATE 75 MG TABLET PO SCH (08:27)
[2019-02-12] MEDS: metFORMIN HCL 500 MG TABLET PO SCH ×2 (08:27→17:01)
[2019-02-12] MEDS: ASPIRIN 81 MG TABLET(ECOTRIN) PO SCH (08:27)
[2019-02-12] MEDS: CARVEDILOL 6.25 MG TABLET (COREG) PO SCH ×2 (08:28→21:22)
[2019-02-12] MEDS: amLODIPine BESYLATE 5 MG TABLET PO SCH (08:28)
[2019-02-12] MEDS: HEPARIN SODIUM,PORCINE 5000 UNITS/ML VIAL SUBCUT SCH ×2 (08:28→21:32)
[2019-02-12] MEDS: INSULIN GLARGINE 100 UNITS/ML 10 ML VIAL SUBCUT SCH (08:29)
[2019-02-12 09:32] LABS: BASOPHILS % (AUTO) 0.1 % (0.0-2.0); HEMATOCRIT 38.1 % (36-54); HEMOGLOBIN 11.7 g/dL (14.0-18.0); LYMPHOCYTES # (AUTO) 0.5 K/uL (1.0-5.5); LYMPHOCYTES % (AUTO) 6.2 % (20.5-51.5); MEAN CORPUSCULAR HEMOGLOBIN 26 pg (27-31); MEAN CORPUSCULAR HGB CONC 31 % (32-36); MEAN CORPUSCULAR VOLUME 85 fL (79.0-98.0); MONOCYTES # (AUTO) 0.4 K/uL (0.0-1.0); MONOCYTES % (AUTO) 4.7 % (1.7-9.3); NEUTROPHILS # (AUTO) 7.2 K/uL (1.8-7.7); PLATELET COUNT (AUTO) 250 K/uL (130-430); RED CELL DISTRIBUTION WIDTH 17.8 % (9.0-15.0); WHITE BLOOD COUNT (AUTO) 8.1 K/uL (4.8-10.8)
[2019-02-12 10:25] LABS: ALANINE AMINOTRANSFERASE 26 U/L (12-78); ALBUMIN 2.5 g/dL (3.4-4.8); ASPARTATE AMINOTRANSFERASE 20 U/L (10-37); CALCIUM 7.9 mg/dL (8.4-11.0); CHLORIDE 95 mmol/L (98-107); CREATININE 0.84 mg/dL (0.55-1.30); GLUCOSE 222 mg/dL (70-99); POTASSIUM 4.8 mmol/L (3.5-5.1); SODIUM SERUM 130 mmol/L (136-145); TOTAL BILIRUBIN 0.4 mg/dL (0.0-1.0); UREA NITROGEN, BLOOD 23 mg/dL (8-21)
[2019-02-12 10:54] LABS: ANION GAP < 5 (5-15)
[2019-02-12] MEDS ORDERED: IBUPROFEN 600 MG TABLET PO PRN (15:30)
[2019-02-12] MEDS: ATORVASTATIN 20 MG TABLET PO SCH (21:21)
[2019-02-12] MEDS: LEVOFLOXACIN 500 MG/D5W 100 ML IV SCH (21:24)
[2019-02-13] VITALS: BP_SYST 135
[2019-02-13] MEDS: IPRATROPIUM/ALBUTEROL SULFATE 3 ML AMPUL.NEB (DUONEB) INH SCH ×4 (03:15→15:26)
[2019-02-13] MEDS: PANTOPRAZOLE SODIUM 40 MG TAB PO SCH (06:37)
[2019-02-13] MEDS: methylPREDNISolone SOD SUCC 40 MG/ML VIAL IVP SCH (06:38)
[2019-02-13 08:00] VITALS: BP_SYST 135
[2019-02-13] MEDS: CLOPIDOGREL BISULFATE 75 MG TABLET PO SCH (08:28)
[2019-02-13] MEDS: ASPIRIN 81 MG TABLET(ECOTRIN) PO SCH (08:31)
[2019-02-13] MEDS: amLODIPine BESYLATE 5 MG TABLET PO SCH (08:31)
[2019-02-13] MEDS: metFORMIN HCL 500 MG TABLET PO SCH (08:31)
[2019-02-13] MEDS: CALCIUM CARBONATE/VITAMIN D3 1 TAB TABLET PO SCH (08:31)
[2019-02-13] MEDS: HEPARIN SODIUM,PORCINE 5000 UNITS/ML VIAL SUBCUT SCH (08:34)
[2019-02-13] MEDS: CARVEDILOL 6.25 MG TABLET (COREG) PO SCH (08:35)
[2019-02-13] MEDS: INSULIN GLARGINE 100 UNITS/ML 10 ML VIAL SUBCUT SCH (08:39)
[2019-02-13] MEDS: NEO/POLYMYX B SULF/DEXAMETH 5 ML OPHT. DROPS.SUSP OP SCH (09:00)
[2019-02-13] MEDS: KETOCONAZOLE 2%, 60 GM TOPICAL CREAM. (NIZORAL) TP SCH (11:55)
[2019-02-13] MEDS: TRIAMCINOLONE ACETONIDE 0.025% 15 GM CREAM.GM. TP SCH (11:56)
[2019-02-13 15:23] VITALS: BP_SYST 123
[2019-02-13] MEDS ORDERED: PREDNISONE 10 MG TABLET PO SCH (21:00)
== END 2019-02-13 16:10 | disposition home health service (06) | DRG 193 ==
LOC: SED 18:17 → STU 20:12
PROVIDERS: ADMIT Internal Medicine; ATTEND Internal Medicine
DX: J18.9 Pneumonia, unspecified organism (principal); J96.20 Acute and chronic respiratory failure, unspecified whether with hypoxia or hypercapnia; D64.9 Anemia, unspecified; E11.9 Type 2 diabetes mellitus without complications; E78.00 Pure hypercholesterolemia, unspecified; R07.89 Other chest pain; D50.9 Iron deficiency anemia, unspecified; E78.5 Hyperlipidemia, unspecified; E87.6 Hypokalemia; F17.210 Nicotine dependence, cigarettes, uncomplicated; I11.9 Hypertensive heart disease without heart failure; I25.10 Atherosclerotic heart disease of native coronary artery without angina pectoris; J43.9 Emphysema, unspecified; K21.9 Gastro-esophageal reflux disease without esophagitis; Z83.3 Family history of diabetes mellitus; Z95.1 Presence of aortocoronary bypass graft; Z88.0 Allergy status to penicillin; Z79.899 Other long term (current) drug therapy; I25.2 Old myocardial infarction
CPT/HCPCS: 36415; 36600; 71045; 80053; 80076; 82150-TC; 82550-TC; 82803-TC; 82962; 83605; 83690-TC; 83735-TC; 83880; 84443-TC; 84484; 85025; 85610-TC; 85730-TC; 87040-TC; 87081; 93005; 93306; 94010; 94640; 94760; 99285; G0378; J1030; J1644; J1815; J1956; J2930; J3475; J7030; J7613; J7620

== ENCOUNTER 2019-03-17 08:27 | Inpatient (IN) | payer OTHER, MEDICAID ==
[~2019-03-17] VITALS: Ht 167.6 cm; Wt 67.1 kg
[2019-03-17 08:27] VITALS: BP_SYST 140
[~2019-03-17 08:27] MED LIST changes: -LEVO750T45 PO; -PRED20TA PO
--- NOTE | 2019-03-17 08:27 | NUR ---
Note maría in ED - 03/17/19 at 0940 by [email or web address] Patient to ER bed 1 to gown for evaluation. Side rails up.
--- NOTE | 2019-03-17 08:27 | NUR ---
Placed in room 1. Placed on arborist, blood pressure machine and pulse oximeter. To gown for exam. Side rails up. Report given to CELIA Steward.
--- NOTE | 2019-03-17 08:30 | NUR ---
PT CAME TO ER FOR RESPIRATORY DISTRESS, WITH BREATHING TREATMENT IN PROGRESS. PT USING ACCESSORY MUSCLES, PRODUCTIVE COUGH PRESENT. AWAITING MD EVALUATION.
--- NOTE | 2019-03-17 08:46 | NUR ---
Medication reconciliation completed with information provided by [facility]. Any prior medication reconciliation on file was reviewed and corrected.
--- NOTE | 2019-03-17 08:48 | NUR ---
ER Dr. Roberson at bedside examining patient.
--- NOTE | 2019-03-17 08:50 | NUR ---
PT 02 SAT DROPPED TO 78% ON RA AND WAS THEN MOVED TO OXIMIZER 4L. O2 SAT WNL.
[2019-03-17 09:09] LABS: BASOPHILS % (AUTO) 0.4 % (0.0-2.0); EOSINOPHILS # (AUTO) 0.1 K/uL (0.0-0.4); EOSINOPHILS % (AUTO) 1.2 % (0.0-4.0); HEMATOCRIT 42.6 % (36-54); HEMOGLOBIN 12.9 g/dL (14.0-18.0); LYMPHOCYTES # (AUTO) 2.1 K/uL (1.0-5.5); LYMPHOCYTES % (AUTO) 33.1 % (20.5-51.5); MEAN CORPUSCULAR HEMOGLOBIN 25 pg (27-31); MEAN CORPUSCULAR HGB CONC 30 % (32-36); MEAN CORPUSCULAR VOLUME 84 fL (79.0-98.0); MONOCYTES # (AUTO) 0.7 K/uL (0.0-1.0); MONOCYTES % (AUTO) 12.1 % (1.7-9.3); NEUTROPHILS # (AUTO) 3.3 K/uL (1.8-7.7); NEUTROPHILS % (AUTO) 53.2 % (40.0-70.0); PLATELET COUNT (AUTO) 261 K/uL (130-430); RED CELL DISTRIBUTION WIDTH 19.1 % (9.0-15.0); WHITE BLOOD COUNT (AUTO) 6.2 K/uL (4.8-10.8)
[2019-03-17 09:26] LABS: ANION GAP 3 (5-15); CALCIUM 8.5 mg/dL (8.4-11.0); CHLORIDE 99 mmol/L (98-107); CREATININE 0.72 mg/dL (0.55-1.30); GLUCOSE 119 mg/dL (70-99); POTASSIUM 4.1 mmol/L (3.5-5.1); SODIUM SERUM 140 mmol/L (136-145); UREA NITROGEN, BLOOD 18 mg/dL (8-21)
[2019-03-17 09:30] LABS: PROTHROMBIN TIME 10.1 SECS (9.5-12.5)
[2019-03-17 09:31] LABS: ALANINE AMINOTRANSFERASE 29 U/L (12-78); ALBUMIN 3.7 g/dL (3.4-4.8); ASPARTATE AMINOTRANSFERASE 17 U/L (10-37); TOTAL BILIRUBIN 0.3 mg/dL (0.0-1.0)
--- NOTE | 2019-03-17 11:19 | NUR ---
Patient will be admitted to care of Dr. Sheehan. Admitted to telemetry unit. Will go to room 102A. Belongings list completed. Complete and up to date summary report printed. SBAR report to be given at bedside with opportunity for questions. Addendum: 03/17/19 at 1121 by [email or web address] Room changed to 102B.
[2019-03-17] MEDS ORDERED: IPRATROPIUM/ALBUTEROL SULFATE 3 ML AMPUL.NEB (DUONEB) INH ONE (11:30)
[2019-03-17] MEDS ORDERED: methylPREDNISolone SOD SUCC/PF 62.5 MG/ML VIAL IVP ONE (11:30)
--- NOTE | 2019-03-17 11:50 | NUR ---
ADMISSION NOTE Received patient from ER via millie, received report from HOOP DRIVING MACHINE OPERATOR. Patient admitted with diagnosis of COPD EXACERBATION. Patient oriented to hospital routine, call light, toileting and safety-patient verbalized understanding.
[2019-03-17 11:52] VITALS: BP_SYST 141
--- NOTE | 2019-03-17 12:00 | NUR ---
CONTINUATION OF CARE REPORT WAS ENDORSED BY ADMISSION NURSE. PATIENT IS AWAKE AND ALERT, NO SIGNS OF ANY DISTRESS, BREATHING IS EQUAL AND NON LABORED. PATIENT EDUCATED HAND LACER LIGHT FOR ASSISTANCE. PATIENT STATES NO NEEDS AT THIS TIME. WILL CONTINUE TO MONITOR.
[2019-03-17] MEDS ORDERED: ACETAMINOPHEN/CODEINE 300 MG-30 MG TABLET PO PRN (12:15)
[2019-03-17] MEDS ORDERED: IPRATROPIUM/ALBUTEROL SULFATE 3 ML AMPUL.NEB (DUONEB) INH PRN (12:15)
[2019-03-17] MEDS ORDERED: guaiFENesin/DEXTROMETHORPHAN 118 ML PO PRN (12:15)
[2019-03-17] MEDS ORDERED: guaiFENesin 200 MG/10 ML UDC PO PRN (12:30)
[2019-03-17] MEDS ORDERED: ONDANSETRON HCL 4 MG/2 ML VIAL IVP PRN (12:30)
[2019-03-17] MEDS ORDERED: NITROGLYCERIN 0.4 MG TAB.SUBL SL PRN (12:30)
[2019-03-17] MEDS: 0.45% NACL 1,000 ML IV SCH (13:44)
--- NOTE | 2019-03-17 13:44 | NUR ---
IV FLUID PATIENTS IV FLUID STARTED PER ORDER. PATIENT IS AWAKE AND ALERT NO SIGNS OF ANY DISTRESS, BREATHING IS EQUAL AND NON LABORED. PATIENT HAS ALL SAFETY PRECAUTIONS IN PLACE. CALL LIGHT IS WITH HIM .EDUCATED TO USE CALL LIGHT FOR ASSISTANCE. NO OTHER NEEDS AT THIS TIME.
[2019-03-17] MEDS: LEVOFLOXACIN 500 MG/D5W 100 ML IV SCH (14:20)
[2019-03-17] MEDS: methylPREDNISolone SOD SUCC/PF 62.5 MG/ML VIAL IVP SCH ×2 (14:21→22:30)
--- NOTE | 2019-03-17 14:29 | NUR ---
medication patients scheduled medication given per order. patient is awake and alert laying in bed no signs of any distress,breathing is equal and non labored. patient has all safety precautions place. call light is with him educated to use for assistance. no other needs at this time. will continue to monitor.
[2019-03-17] MEDS: NEO/POLYMYX B SULF/DEXAMETH 5 ML OPHT. DROPS.SUSP OP SCH ×2 (15:00→20:50)
[2019-03-17] MEDS: ALBUTEROL SULFATE 0.083% 2.5 MG/3 ML VIAL.NEB INH SCH ×2 (15:00→19:27)
--- NOTE | 2019-03-17 15:00 | NUR ---
MEDICATION PATIENTS SCHEDULED MEDICATION GIVEN ORDERED.
[2019-03-17 15:04] VITALS: BP_SYST 117
[2019-03-17 17:01] VITALS: BP_SYST 117
[2019-03-17] MEDS: INSULIN LISPRO SLIDING SCALE 100 UNITS/ML VIAL (humaLOG) SUBCUT PRN ×2 (17:36→21:06)
[2019-03-17] MEDS: metFORMIN HCL 500 MG TABLET PO SCH (17:55)
--- NOTE | 2019-03-17 17:55 | NUR ---
MEDICATION PATIENTS SCHEDULED MEDICATION GIVEN PER ORDER. PATIENT IS AWAKE AND ALERT NO SIGNS OF ANY DISTRESS, BREATHING IS EQUAL AND NON LABORED. PATIENT IS SITTING UP IN BED. PATIENT HAS NO OTHER NEEDS A THIS TIME. ALL SAFETY PRECAUTIONS IN PLACE. CALL LIGHT IS WITH HIM. EDUCATED TO USE CALL LIGHT FOR ASSISTANCE.
--- NOTE | 2019-03-17 19:30 | NUR ---
Opening Note Received report from kasandra RN, patient is resting in bed, awake, A/Ox4, no signs of acute distress, even and unlabored breathing on 2L NC, IV to right AC infusing fluids per MD order, no redness, no swelling, no infiltration noted, safety and fall precautions in place, bed locked and in lowest position, patient refused bed alarm despite education, will reinforce education regarding bed alarm system, two side rails up, call light with patient, will continue to monitor.
--- NOTE | 2019-03-17 19:58 | NUR ---
RN CLOSING NOTE REPORT WAS ENDORSED BY NIGHT NURSE. PATIENT IS AWAKE AND ALERT, LAYING IN BED, WATCHING TELEVISION. PATIENT HAS CALL LIGHT WITH HIM EDUCATED TO USE CALL LIGHT FOR ASSISTANCE. PATIENT HAS NO OTHER NEEDS AT THIS TIME.
[2019-03-17 20:00] VITALS: BP_SYST 112
[2019-03-17] MEDS: ATORVASTATIN 20 MG TABLET PO SCH (20:48)
[2019-03-17] MEDS: CARVEDILOL 6.25 MG TABLET (COREG) PO SCH (20:49)
--- NOTE | 2019-03-17 20:52 | NUR ---
Blood Sugar= 210 Patient's blood sugar is 210. Insulin lispro indicated per insulin sliding scale. Educated patient on medication uses and potential side effects, patient able to verbalize understanding. Administered medication per MD order. Patient tolerated well. No signs of acute distress at this time. Safety and fall precautions in place, call light with patient, will continue to monitor.
[2019-03-17] MEDS: TRIAMCINOLONE ACETONIDE 0.025% 15 GM CREAM.GM. TP SCH (20:53)
[2019-03-17] MEDS: HEPARIN SODIUM,PORCINE 5000 UNITS/ML VIAL SUBCUT SCH (20:55)
[2019-03-17] MEDS ORDERED: TRIAMCINOLONE ACETONIDE 0.025% 80 GM CREAM.GM. TP SCH (21:00)
[2019-03-17] MEDS ORDERED: CARVEDILOL PHOSPHATE 10 MG CPMP.24HR ( COREG CR) PO SCH (21:00)
--- NOTE | 2019-03-17 22:32 | NUR ---
Pain Patient complains of pain 6/10 to his abdomen. PRN Tylenol with codeine indicated for moderate pain. Educated patient on medication uses and potential side effects, patient able to verbalize understanding. Administered medication per MD order. Patient tolerated well. Safety and fall precautions in place, call light with patient, will continue to monitor.
--- NOTE | 2019-03-18 00:07 | NUR ---
RN Rounds Patient is resting in bed, eyes closed, no signs of acute distress, tolerating 2L NC, IV fluids infusing well, no complaints of pain, safety and fall precautions in place, call light with patient, will continue to monitor.
[2019-03-18 00:32] VITALS: BP_SYST 131
[2019-03-18 00:35] VITALS: BP_SYST 125
--- NOTE | 2019-03-18 02:25 | NUR ---
RN Rounds Patient is resting in bed, eyes closed, no signs of acute distress, tolerating 2L NC, IV fluids infusing well, emptied patient's urinal, 580 output of yellow urine, no complaints of pain, safety and fall precautions in place, call light with patient, will continue to monitor.
[2019-03-18] MEDS: 0.45% NACL 1,000 ML IV SCH ×2 (02:32→13:55)
--- NOTE | 2019-03-18 04:15 | NUR ---
RN Rounds Patient is resting in bed, eyes closed, tolerating 2L NC, no signs of acute distress, IV fluids infusing well, no complaints of pain, safety and fall precautions in place, call light with patient, will continue to monitor.
[2019-03-18] MEDS: methylPREDNISolone SOD SUCC/PF 62.5 MG/ML VIAL IVP SCH ×3 (05:46→21:09)
[2019-03-18] MEDS: INSULIN LISPRO SLIDING SCALE 100 UNITS/ML VIAL (humaLOG) SUBCUT PRN ×4 (06:11→20:50)
--- NOTE | 2019-03-18 06:11 | NUR ---
Blood Sugar= 185 Patient's blood sugar is 185. Insulin lispro indicated per insulin sliding scale. Educated patient on medication uses and potential side effects, patient able to verbalize understanding. Administered medication per MD order. Patient tolerated well. No signs of acute distress at this time. Safety and fall precautions in place, call light with patient, will continue to monitor.
--- NOTE | 2019-03-18 06:55 | NUR ---
Closing Note Patient is resting in bed, eyes closed, no signs of acute distress, even and unlabored breathing on 2L NC, no complaints of pain, IV to right AC infusing fluids per MD order, no redness, no swelling, no infiltration noted, safety and fall precautions in place, bed locked and in lowest position, patient refused bed alarm despite education, will reinforce education regarding bed alarm system, two side rails up, call light with patient, will endorse care to dayshift RN.
[2019-03-18] MEDS: ALBUTEROL SULFATE 0.083% 2.5 MG/3 ML VIAL.NEB INH SCH ×4 (07:25→19:39)
--- NOTE | 2019-03-18 07:30 | NUR ---
Opening Note Patient received sitting up in bed eating breakfast with no signs of distress at this time. Patient does not complain of pain. Safety precautions enforced. Use of call light reinforced.
[2019-03-18 08:00] VITALS: BP_SYST 121
[2019-03-18 08:08] LABS: BASOPHILS % (AUTO) 0.2 % (0.0-2.0); HEMATOCRIT 38.2 % (36-54); HEMOGLOBIN 11.7 g/dL (14.0-18.0); LYMPHOCYTES # (AUTO) 1.2 K/uL (1.0-5.5); LYMPHOCYTES % (AUTO) 12.7 % (20.5-51.5); MEAN CORPUSCULAR HEMOGLOBIN 25 pg (27-31); MEAN CORPUSCULAR HGB CONC 31 % (32-36); MEAN CORPUSCULAR VOLUME 83 fL (79.0-98.0); MONOCYTES # (AUTO) 0.2 K/uL (0.0-1.0); MONOCYTES % (AUTO) 2.6 % (1.7-9.3); NEUTROPHILS # (AUTO) 8.1 K/uL (1.8-7.7); NEUTROPHILS % (AUTO) 84.5 % (40.0-70.0); PLATELET COUNT (AUTO) 247 K/uL (130-430); RED BLOOD CELL COUNT(AUTO) 4.59 MIL/uL (4.2-6.2); RED CELL DISTRIBUTION WIDTH 18.5 % (9.0-15.0); WHITE BLOOD COUNT (AUTO) 9.6 K/uL (4.8-10.8)
[2019-03-18 08:09] LABS: ALANINE AMINOTRANSFERASE 22 U/L (12-78); ALBUMIN 3.1 g/dL (3.4-4.8); ANION GAP 1 (5-15); ASPARTATE AMINOTRANSFERASE 15 U/L (10-37); CALCIUM 8.4 mg/dL (8.4-11.0); CHLORIDE 98 mmol/L (98-107); CREATININE 0.86 mg/dL (0.55-1.30); GLUCOSE 182 mg/dL (70-99); POTASSIUM 4.4 mmol/L (3.5-5.1); SODIUM SERUM 132 mmol/L (136-145); TOTAL BILIRUBIN 0.2 mg/dL (0.0-1.0); UREA NITROGEN, BLOOD 19 mg/dL (8-21)
[2019-03-18] MEDS: CLOPIDOGREL BISULFATE 75 MG TABLET PO SCH (08:28)
[2019-03-18] MEDS: CARVEDILOL 6.25 MG TABLET (COREG) PO SCH ×2 (08:29→20:37)
[2019-03-18] MEDS: amLODIPine BESYLATE 5 MG TABLET PO SCH (08:29)
[2019-03-18] MEDS: PANTOPRAZOLE SODIUM 40 MG TAB PO SCH (08:29)
[2019-03-18] MEDS: ASPIRIN 81 MG TABLET(ECOTRIN) PO SCH (08:29)
[2019-03-18] MEDS: metFORMIN HCL 500 MG TABLET PO SCH ×2 (08:30→18:02)
[2019-03-18] MEDS: INSULIN GLARGINE 100 UNITS/ML 10 ML VIAL SUBCUT SCH (08:33)
[2019-03-18] MEDS: HEPARIN SODIUM,PORCINE 5000 UNITS/ML VIAL SUBCUT SCH ×2 (08:33→20:44)
[2019-03-18] MEDS: KETOCONAZOLE 2%, 60 GM TOPICAL CREAM. (NIZORAL) TP SCH (08:43)
[2019-03-18] MEDS: NEO/POLYMYX B SULF/DEXAMETH 5 ML OPHT. DROPS.SUSP OP SCH ×3 (08:43→20:37)
[2019-03-18] MEDS: TRIAMCINOLONE ACETONIDE 0.025% 15 GM CREAM.GM. TP SCH ×2 (08:43→20:39)
--- NOTE | 2019-03-18 10:00 | NUR ---
RN Rounds Patient resting in bed watching television at this time. Patient does not complain of pain. Patient in no signs of distress.
[2019-03-18 12:00] VITALS: BP_SYST 136
--- NOTE | 2019-03-18 12:00 | NUR ---
RN Rounds Patient resting at this time with no signs of distress noted. Patient does not complain. Safety precautions enforced.
[2019-03-18] MEDS: LEVOFLOXACIN 500 MG/D5W 100 ML IV SCH (13:55)
--- NOTE | 2019-03-18 14:00 | NUR ---
RN Rounds Patient eating in bed at this time. Patient does not complain of pain. Patient in no signs of distress noted.
--- NOTE | 2019-03-18 16:00 | NUR ---
RN Rounds Patient resting in bed at this time, no signs of distress noted. Patient does not complain of pain.
[2019-03-18 16:40] VITALS: BP_SYST 110
--- NOTE | 2019-03-18 18:00 | NUR ---
RN Rounds Patient eating in bed at this time. Patient does not complain of pain. Patient not in any distress.
--- NOTE | 2019-03-18 19:30 | NUR ---
Opening Note Received patient resting in bed, awake, no signs of acute distress, even and unlabored breathing on 2L NC, IV to right AC infusing fluids per MD order, dressings c/d/i. Safety and fall precautions in place, bed locked and in lowest position, bed alarm off, after patient education provided and patient understanding of risks of no bed alarm, call light within reach. will continue to monitor.
[2019-03-18 20:00] VITALS: BP_SYST 114
[2019-03-18] MEDS: ATORVASTATIN 20 MG TABLET PO SCH (20:36)
--- NOTE | 2019-03-18 22:14 | NUR ---
Patient is resting, no respiratory distress observed. Urinal has been emptied. Will continue to monitor. Bed alarm still refused, call light within reach.
[2019-03-19] VITALS: BP_SYST 120
--- NOTE | 2019-03-19 00:10 | NUR ---
Patient is awake, watching television. No respiratory distress observed. Will continue to monitor.
[2019-03-19] MEDS: 0.45% NACL 1,000 ML IV SCH ×2 (01:40→14:59)
--- NOTE | 2019-03-19 02:42 | NUR ---
Patient is resting, eyes closed. No respiratory distress observed. IVF running, dressings c/d/i. Will continue to monitor.
[2019-03-19] MEDS: methylPREDNISolone SOD SUCC/PF 62.5 MG/ML VIAL IVP SCH ×3 (06:11→21:19)
[2019-03-19] MEDS: INSULIN LISPRO SLIDING SCALE 100 UNITS/ML VIAL (humaLOG) SUBCUT PRN ×3 (06:15→17:31)
--- NOTE | 2019-03-19 06:45 | NUR ---
CLOSING NOTES Patient resting in bed, awake, no signs of acute distress, even and unlabored breathing on 2L NC, IV to right AC infusing fluids per MD order, dressings c/d/i. Safety and fall precautions in place, bed locked and in lowest position, bed alarm off, after patient education provided and patient understanding of risks of no bed alarm, call light within reach. All needs met throughout shift. Will endorse care to oncoming shift.
[2019-03-19] MEDS: ALBUTEROL SULFATE 0.083% 2.5 MG/3 ML VIAL.NEB INH SCH ×4 (07:00→19:51)
--- NOTE | 2019-03-19 08:00 | NUR ---
received awake and in no c/o discomfort.vss.resp even and unlabored and 02 at 2l nc.iv infusing at 80 hr.tele sr.am meds given and taking breakfast well.continue to monitor call merino in place
[2019-03-19] MEDS: amLODIPine BESYLATE 5 MG TABLET PO SCH (08:28)
[2019-03-19] MEDS: metFORMIN HCL 500 MG TABLET PO SCH ×2 (08:29→17:29)
[2019-03-19] MEDS: CARVEDILOL 6.25 MG TABLET (COREG) PO SCH ×2 (08:29→21:23)
[2019-03-19] MEDS: ASPIRIN 81 MG TABLET(ECOTRIN) PO SCH (08:30)
[2019-03-19] MEDS: PANTOPRAZOLE SODIUM 40 MG TAB PO SCH (08:30)
[2019-03-19] MEDS: CLOPIDOGREL BISULFATE 75 MG TABLET PO SCH (08:30)
[2019-03-19] MEDS: HEPARIN SODIUM,PORCINE 5000 UNITS/ML VIAL SUBCUT SCH ×2 (08:33→21:30)
[2019-03-19] MEDS: INSULIN GLARGINE 100 UNITS/ML 10 ML VIAL SUBCUT SCH (08:36)
[2019-03-19] MEDS: KETOCONAZOLE 2%, 60 GM TOPICAL CREAM. (NIZORAL) TP SCH (10:04)
[2019-03-19] MEDS: NEO/POLYMYX B SULF/DEXAMETH 5 ML OPHT. DROPS.SUSP OP SCH ×3 (10:04→21:31)
[2019-03-19] MEDS: TRIAMCINOLONE ACETONIDE 0.025% 15 GM CREAM.GM. TP SCH ×2 (10:05→21:31)
[2019-03-19 11:15] VITALS: BP_SYST 122
--- NOTE | 2019-03-19 12:00 | NUR ---
remains in no c/odiscomfort vss.tele sr.covered with insulin sliding scale for bs 247.continue to monitor call merino in place.
[2019-03-19] MEDS: LEVOFLOXACIN 500 MG/D5W 100 ML IV SCH (14:42)
[2019-03-19 15:18] VITALS: BP_SYST 120
--- NOTE | 2019-03-19 18:47 | NUR ---
REMAINS IN NO C/O DISCOMFORT.BS COVERED PER SS TELE SR VSS CONTINUE TO MONITOR CALL GONZÁLES IN PLACE
--- NOTE | 2019-03-19 19:15 | NUR ---
OPENING NOTE Received patient resting in bed, awake, no signs of acute distress, IV to right AC infusing fluids per MD order, dressings c/d/i. Safety and fall precautions in place, bed locked and in lowest position, bed alarm off, after patient education provided and patient understanding of risks of no bed alarm, call light within reach, urinal at bedside. will continue to monitor.
--- NOTE | 2019-03-19 19:28 | NUR ---
REPORT TO NIGHT RN GIVEN
[2019-03-19 20:15] VITALS: BP_SYST 130
[2019-03-19] MEDS: ATORVASTATIN 20 MG TABLET PO SCH (21:18)
--- NOTE | 2019-03-19 22:14 | NUR ---
Patient is resting, no signs of distress observed. Urinal emptied. IVF running, dressings c/d/i. Will continue to monitor.
[2019-03-19 23:23] VITALS: BP_SYST 135
--- NOTE | 2019-03-20 00:14 | NUR ---
Patient is resting, no acute respiratory distress observed. Emptied urinal. IVF running, dressings c/d/i. Will continue to monitor.
--- NOTE | 2019-03-20 03:30 | NUR ---
OPENING NOTE Received patient resting in bed, awake, no signs of acute distress, IV to right AC infusing fluids per MD order, dressings c/d/i. Safety and fall precautions in place, bed locked and in lowest position, bed alarm off, after patient education provided and patient understanding of risks of no bed alarm, call light within reach, urinal at bedside. will continue to monitor. Addendum: 03/20/19 at 0331 by Stew Miles RN WRONG TIME please disregard
--- NOTE | 2019-03-20 03:32 | NUR ---
Patient is asleep, rise and fall of chest observed. No respiratory distress observed, 2L NC. Will continue to monitor.
[2019-03-20] MEDS: 0.45% NACL 1,000 ML IV SCH ×2 (04:26→23:14)
[2019-03-20] MEDS: methylPREDNISolone SOD SUCC/PF 62.5 MG/ML VIAL IVP SCH (06:27)
--- NOTE | 2019-03-20 06:54 | NUR ---
CLOSING NOTE Patient is resting in bed, awake, no signs of acute respiratory distress, 2L NC, IV to right AC infusing fluids per MD order, dressings c/d/i. Safety and fall precautions in place, bed locked and in lowest position, bed alarm off, after patient education provided and patient understanding of risks of no bed alarm, call light within reach, urinal at bedside. will continue to monitor. Addendum: 03/20/19 at 0655 by Stew Mlies RN All needs met throughout shift. Will endorse care to oncoming shift.
[2019-03-20 07:06] LABS: HEMOGLOBIN 11.4 g/dL (14.0-18.0); LYMPHOCYTES # (AUTO) 1.1 K/uL (1.0-5.5); LYMPHOCYTES % (AUTO) 7.3 % (20.5-51.5); MEAN CORPUSCULAR HEMOGLOBIN 25 pg (27-31); MEAN CORPUSCULAR HGB CONC 31 % (32-36); MEAN CORPUSCULAR VOLUME 83 fL (79.0-98.0); MONOCYTES # (AUTO) 0.4 K/uL (0.0-1.0); NEUTROPHILS # (AUTO) 13.2 K/uL (1.8-7.7); NEUTROPHILS % (AUTO) 89.7 % (40.0-70.0); PLATELET COUNT (AUTO) 222 K/uL (130-430); RED BLOOD CELL COUNT(AUTO) 4.49 MIL/uL (4.2-6.2); RED CELL DISTRIBUTION WIDTH 18.9 % (9.0-15.0); WHITE BLOOD COUNT (AUTO) 14.8 K/uL (4.8-10.8)
[2019-03-20 07:23] VITALS: BP_SYST 138
[2019-03-20] MEDS: ALBUTEROL SULFATE 0.083% 2.5 MG/3 ML VIAL.NEB INH SCH ×4 (07:25→20:23)
--- NOTE | 2019-03-20 07:30 | NUR ---
OPENING NOTE Patient resting in the bed. No acute distress. On O2 2L/min via NC. Denied of pain. Skin warm and dry to touch. IV intact to RAC, no redness, no swelling, no drainage. On 1/2NS at 60ml/hr, infusing well. Safety measure maintained. Call light within reached. Bed locked in low position, side rails up, bed alarm on. Will continue to monitor.
[2019-03-20 07:50] VITALS: BP_SYST 138
[2019-03-20 07:56] LABS: ALANINE AMINOTRANSFERASE 19 U/L (12-78); ANION GAP 3 (5-15); ASPARTATE AMINOTRANSFERASE 12 U/L (10-37); CALCIUM 8.1 mg/dL (8.4-11.0); CHLORIDE 100 mmol/L (98-107); CREATININE 0.67 mg/dL (0.55-1.30); GLUCOSE 138 mg/dL (70-99); POTASSIUM 3.9 mmol/L (3.5-5.1); SODIUM SERUM 134 mmol/L (136-145); TOTAL BILIRUBIN 0.3 mg/dL (0.0-1.0); UREA NITROGEN, BLOOD 20 mg/dL (8-21)
[2019-03-20] MEDS: NEO/POLYMYX B SULF/DEXAMETH 5 ML OPHT. DROPS.SUSP OP SCH ×3 (08:24→21:08)
[2019-03-20] MEDS: KETOCONAZOLE 2%, 60 GM TOPICAL CREAM. (NIZORAL) TP SCH (08:24)
[2019-03-20] MEDS: TRIAMCINOLONE ACETONIDE 0.025% 15 GM CREAM.GM. TP SCH ×2 (08:24→21:09)
[2019-03-20] MEDS: ASPIRIN 81 MG TABLET(ECOTRIN) PO SCH (08:25)
[2019-03-20] MEDS: CLOPIDOGREL BISULFATE 75 MG TABLET PO SCH (08:25)
[2019-03-20] MEDS: CARVEDILOL 6.25 MG TABLET (COREG) PO SCH ×2 (08:25→21:08)
[2019-03-20] MEDS: PANTOPRAZOLE SODIUM 40 MG TAB PO SCH (08:25)
[2019-03-20] MEDS: metFORMIN HCL 500 MG TABLET PO SCH ×2 (08:25→17:57)
[2019-03-20] MEDS: amLODIPine BESYLATE 5 MG TABLET PO SCH (08:26)
[2019-03-20] MEDS: HEPARIN SODIUM,PORCINE 5000 UNITS/ML VIAL SUBCUT SCH ×2 (08:31→21:26)
[2019-03-20] MEDS: INSULIN GLARGINE 100 UNITS/ML 10 ML VIAL SUBCUT SCH (08:32)
--- NOTE | 2019-03-20 09:53 | NUR ---
Nutrition Update Evan Scale 18 noted. Pt admitted for COPD exacerbation Diet: Cardiac BMI: 23.9 kg/m2 RD to follow per nutrition care standards.
--- NOTE | 2019-03-20 10:00 | NUR ---
ROUND Patient resting in the bed with eyes closed. No acute distress. continue on O2 via NC. IV intact, IVF infusing well. Safety measure maintained. Call light within reached. Bed locked in low position, side rails up, bed alarm on. Continue to monitor.
[2019-03-20] MEDS: INSULIN LISPRO SLIDING SCALE 100 UNITS/ML VIAL (humaLOG) SUBCUT PRN ×3 (11:56→21:25)
--- NOTE | 2019-03-20 11:56 | NUR ---
JD=648 Humalog insulin 5 units given per sliding scale for GN=537. Patient resting in the bed. No acute distress. Safety measure maintained. Call light within reached. Bed locked in low position, side rails up, bed alarm on. Continue to monitor. Addendum: 03/20/19 at 1904 by Nadege Manzanares RN HUMALOG INSULIN 6 UNITS WAS GIVEN PER SLIDING SCALE FOR ZP=648.
--- NOTE | 2019-03-20 12:30 | NUR ---
SEEN AND EXAMINED BY JARON CAMPOS WITH ORDER RECEIVED.
[2019-03-20 12:33] VITALS: BP_SYST 139
[2019-03-20] MEDS: LEVOFLOXACIN 500 MG/D5W 100 ML IV SCH (13:48)
[2019-03-20] MEDS: methylPREDNISolone SOD SUCC 40 MG/ML VIAL IVP SCH ×2 (13:48→21:07)
--- NOTE | 2019-03-20 14:38 | NUR ---
ROUND Patient resting in the bed with eyes closed. No acute distress. Continue on O2 via NC. IV intact, IVF infusing well. Safety measure maintained. Call light within reached. Bed locked in low position, side rails up. Continue to monitor.
--- NOTE | 2019-03-20 16:20 | NUR ---
ROUND Patient resting in the bed. No acute distress. Continue on O2 via NC. IV intact, IVF infusing well. Safety measure maintained. Call light within reached. Bed locked in low position, side rails up. Continue to monitor.
[2019-03-20 16:28] VITALS: BP_SYST 127
--- NOTE | 2019-03-20 18:50 | NUR ---
CLOSING NOTE Patient resting in the bed. No acute distress. On O2 2L/min via NC. Denied of pain. Skin warm and dry to touch. IV intact to RAC, no redness, no swelling, no drainage. On 1/2NS at 60ml/hr, infusing well. All needs met. Safety measure maintained. Call light within reached. Bed locked in low position, side rails up. Refused bed alarm, risk and benefit explained, verbally understanding. Will endorse to night nurse.
[2019-03-20 20:20] VITALS: BP_SYST 133
--- NOTE | 2019-03-20 20:20 | NUR ---
Opening notes Pt AAOx4, VSS, no c/o pain or sob. O2 2L via NC satting at 96%. IVF infusing R. AC 20G no s/s infiltration. Call light/items within reach. To monitor.
[2019-03-20] MEDS: ATORVASTATIN 20 MG TABLET PO SCH (21:07)
--- NOTE | 2019-03-20 21:25 | NUR ---
Blood sugar 172, 8 units Humalog insulin given SQ per ss protocol. To monitor.
[2019-03-21 00:28] VITALS: BP_SYST 125
--- NOTE | 2019-03-21 00:35 | NUR ---
Rounds Pt asleep, respirations even and unlabored. O2 2L via NC. Call light within reach. Safety maintained. Will continue to monitor.
[2019-03-21] MEDS: methylPREDNISolone SOD SUCC 40 MG/ML VIAL IVP SCH (06:20)
--- NOTE | 2019-03-21 06:23 | NUR ---
Closing notes Pt AAOx4, no s/s distress noted. IVF infusing at ordered rate R. AC 20G no s/s infiltration. BS checked 132. Call light within reach. Safety maintained. To endorse to AM nurse.
[2019-03-21] MEDS: ALBUTEROL SULFATE 0.083% 2.5 MG/3 ML VIAL.NEB INH SCH (07:24)
[2019-03-21 07:25] LABS: HEMOGLOBIN 11.4 g/dL (14.0-18.0); LYMPHOCYTES # (AUTO) 1.1 K/uL (1.0-5.5); LYMPHOCYTES % (AUTO) 9.8 % (20.5-51.5); MEAN CORPUSCULAR HEMOGLOBIN 25 pg (27-31); MEAN CORPUSCULAR HGB CONC 31 % (32-36); MEAN CORPUSCULAR VOLUME 82 fL (79.0-98.0); MONOCYTES # (AUTO) 0.7 K/uL (0.0-1.0); NEUTROPHILS # (AUTO) 9.6 K/uL (1.8-7.7); NEUTROPHILS % (AUTO) 84.2 % (40.0-70.0); PLATELET COUNT (AUTO) 209 K/uL (130-430); RED BLOOD CELL COUNT(AUTO) 4.52 MIL/uL (4.2-6.2); RED CELL DISTRIBUTION WIDTH 18.8 % (9.0-15.0); WHITE BLOOD COUNT (AUTO) 11.4 K/uL (4.8-10.8)
[2019-03-21 08:00] VITALS: BP_SYST 140
[2019-03-21] MEDS: INSULIN GLARGINE 100 UNITS/ML 10 ML VIAL SUBCUT SCH (09:00)
[2019-03-21] MEDS: TRIAMCINOLONE ACETONIDE 0.025% 15 GM CREAM.GM. TP SCH (09:00)
[2019-03-21] MEDS: amLODIPine BESYLATE 5 MG TABLET PO SCH (10:29)
[2019-03-21] MEDS: CARVEDILOL 6.25 MG TABLET (COREG) PO SCH (10:29)
[2019-03-21] MEDS: ASPIRIN 81 MG TABLET(ECOTRIN) PO SCH (10:29)
[2019-03-21] MEDS: KETOCONAZOLE 2%, 60 GM TOPICAL CREAM. (NIZORAL) TP SCH (10:30)
[2019-03-21] MEDS: NEO/POLYMYX B SULF/DEXAMETH 5 ML OPHT. DROPS.SUSP OP SCH (10:30)
[2019-03-21] MEDS: PANTOPRAZOLE SODIUM 40 MG TAB PO SCH (10:39)
[2019-03-21] MEDS: CLOPIDOGREL BISULFATE 75 MG TABLET PO SCH (10:40)
[2019-03-21] MEDS: metFORMIN HCL 500 MG TABLET PO SCH (10:40)
[2019-03-21] MEDS: HEPARIN SODIUM,PORCINE 5000 UNITS/ML VIAL SUBCUT SCH (10:43)
[2019-03-21 11:21] VITALS: BP_SYST 137
[2019-03-21 12:32] VITALS: BP_SYST 140
[2019-03-21] MEDS ORDERED: LEVO750T45 PO (12:40)
[2019-03-21] MEDS ORDERED: PRED50TA PO (12:41)
--- NOTE | 2019-03-21 14:00 | NUR ---
patient discharged back to [facility]. Discharge instructions and prescriptions given to patient. patient being transported via [facility] transportation van. Heplock removed and covered with cotton swab and tape. both verbal and written discharge instuctions given to patient. patient intructed to follow up with primary care physician. vss no s&s of pain or distress.
[2019-03-22] MEDS ORDERED: PREDNISONE 20 MG TABLET PO SCH (09:00)
[2019-03-22] MEDS ORDERED: LEVOFLOXACIN 500 MG TABLET PO SCH (10:00)
== END 2019-03-21 14:15 | disposition home or self-care (01) | DRG 871 ==
LOC: SED 08:27 → STU 11:17 → SMU 03-20 17:40
PROVIDERS: ADMIT Internal Medicine; ATTEND Internal Medicine
DX: A41.9 Sepsis, unspecified organism (principal); J18.9 Pneumonia, unspecified organism; J96.01 Acute respiratory failure with hypoxia; J44.1 Chronic obstructive pulmonary disease with (acute) exacerbation; J44.0 Chronic obstructive pulmonary disease with (acute) lower respiratory infection; E11.9 Type 2 diabetes mellitus without complications; E78.00 Pure hypercholesterolemia, unspecified; I10 Essential (primary) hypertension; I25.10 Atherosclerotic heart disease of native coronary artery without angina pectoris; K21.9 Gastro-esophageal reflux disease without esophagitis; Z95.1 Presence of aortocoronary bypass graft; Z88.0 Allergy status to penicillin; Z79.899 Other long term (current) drug therapy
CPT/HCPCS: 36415; 36600; 71045; 80053; 82803-TC; 82962; 83605; 83880; 84484; 85025; 85610-TC; 85730-TC; 87040-TC; 94640; 94760; 96374; 99285; G0378; J1030; J1644; J1815; J1956; J2930; J7613; J7620

== ENCOUNTER 2019-05-02 07:55 | Emergency (ER) | payer OTHER, MEDICAID ==
[~2019-05-02] VITALS: Ht 175.3 cm; Wt 79.4 kg
[2019-05-02 07:55] VITALS: BP_SYST 154
[~2019-05-02 07:55] MED LIST changes: +LEVO750T45 PO; +PRED50TA PO
--- NOTE | 2019-05-02 07:55 | NUR ---
Dr. Davenport at bedside for examination.
--- NOTE | 2019-05-02 07:55 | NUR ---
BROUGHT BACK TO BED #1 AND TRIAGED. REPORT GIVEN TO TANNER
[2019-05-02] MEDS ORDERED: NACL 0.9% 1,000 ML IV ONE (07:56)
[2019-05-02] MEDS ORDERED: ALBUTEROL SULFATE 0.083% 2.5 MG/3 ML VIAL.NEB INH ONE ×2 (08:00→10:30)
[2019-05-02] MEDS ORDERED: methylPREDNISolone SOD SUCC/PF 62.5 MG/ML VIAL IVP ONE (08:00)
--- NOTE | 2019-05-02 08:20 | NUR ---
Patient BIBA with c/o of SOB x 1 hour, productive cough, and low saturations 70%, breathing treatment given en route. Upon arrival, patient connected to council on aging director with increased heart rate of 110-120s. Patient primarily Wolof speaker but able to follow commands. Patient breathing evenly and unlabored with no signs of acute distress at this time. Patient does not complain of pain. Safety precautions enforced.
[2019-05-02 08:24] LABS: BASOPHILS # (AUTO) 0.1 K/uL (0.0-0.2); BASOPHILS % (AUTO) 0.7 % (0.0-2.0); EOSINOPHILS # (AUTO) 0.1 K/uL (0.0-0.4); EOSINOPHILS % (AUTO) 0.8 % (0.0-4.0); HEMATOCRIT 40.2 % (36-54); HEMOGLOBIN 12.1 g/dL (14.0-18.0); LYMPHOCYTES # (AUTO) 1.7 K/uL (1.0-5.5); LYMPHOCYTES % (AUTO) 19.1 % (20.5-51.5); MEAN CORPUSCULAR HEMOGLOBIN 26 pg (27-31); MEAN CORPUSCULAR HGB CONC 30 % (32-36); MEAN CORPUSCULAR VOLUME 85 fL (79.0-98.0); MONOCYTES # (AUTO) 0.9 K/uL (0.0-1.0); MONOCYTES % (AUTO) 10.4 % (1.7-9.3); NEUTROPHILS # (AUTO) 6.3 K/uL (1.8-7.7); PLATELET COUNT (AUTO) 232 K/uL (130-430); RED BLOOD CELL COUNT(AUTO) 4.72 MIL/uL (4.2-6.2); RED CELL DISTRIBUTION WIDTH 20.1 % (9.0-15.0); WHITE BLOOD COUNT (AUTO) 9.1 K/uL (4.8-10.8)
[2019-05-02 08:36] LABS: ANION GAP 3 (5-15); CALCIUM 8.4 mg/dL (8.4-11.0); CHLORIDE 100 mmol/L (98-107); CREATININE 0.76 mg/dL (0.55-1.30); GLUCOSE 169 mg/dL (70-99); POTASSIUM 4.2 mmol/L (3.5-5.1); SODIUM SERUM 140 mmol/L (136-145); UREA NITROGEN, BLOOD 21 mg/dL (8-21)
[2019-05-02 08:38] LABS: PROTHROMBIN TIME 10.1 SECS (9.5-12.5)
[2019-05-02 08:42] LABS: ALANINE AMINOTRANSFERASE 25 U/L (12-78); ALBUMIN 3.3 g/dL (3.4-4.8); AMYLASE 50 U/L (0-100); ASPARTATE AMINOTRANSFERASE 17 U/L (10-37); LIPASE 101 U/L (73-393); TOTAL BILIRUBIN 0.4 mg/dL (0.0-1.0)
--- NOTE | 2019-05-02 08:46 | NUR ---
Patient now on 2L oxygen via nasal cannula with saturation of 97%. Patient in no signs of respiratory distress at this time.
[2019-05-02] MEDS ORDERED: SSREG SUBCUT (09:01)
--- NOTE | 2019-05-02 09:02 | NUR ---
Medication reconciliation completed with information provided by [facility]. Any prior medication reconciliation on file was reviewed and corrected.
[2019-05-02] MEDS ORDERED: IPRATROPIUM BROM 0.5 MG/2.5 ML VIAL.NEB (ATROVENT) INH ONE (10:30)
--- NOTE | 2019-05-02 10:59 | NUR ---
Patient resting at this time with no signs of acute distress noted. Patient does not complain of pain. Safety precautions enforced.
[2019-05-02 11:37] LABS: BILIRUBIN,URINE NEGATIVE (NEGATIVE); BLOOD, URINE NEGATIVE (NEGATIVE); CLARITY/URINE CLEAR (CLEAR); COLOR,URINE YELLOW (YELLOW); GLUCOSE,URINE NEGATIVE (NEGATIVE); KETONES,URINE NEGATIVE (NEGATIVE); LEUKOCYTE ESTERASE ,URINE NEGATIVE (NEGATIVE); NITRITE, URINE NEGATIVE (NEGATIVE); PROTEIN URINE NEGATIVE (NEGATIVE); UROBILINOGEN,URINE 0.2 (0.2-1.0)
[2019-05-02 12:54] VITALS: BP_SYST 116
--- NOTE | 2019-05-02 12:56 | NUR ---
Patient given written and verbal discharge instructions and verbalizes understanding. ER MD discussed with patient the results and treatment provided. Patient in stable condition. ID arm band removed. IV catheter removed intact and dressing applied, no active bleeding. Rx of ROBITUSSIN,ZITHROMAX, AND PREDNISONE given. Patient educated on pain management and to follow up with PMD. Pain Scale 0. Opportunity for questions provided and answered. Medication side effect fact sheet provided.
== END 2019-05-02 12:56 | disposition home or self-care (01) ==
LOC: SED 07:55
DX: J44.1 Chronic obstructive pulmonary disease with (acute) exacerbation (principal); R06.02 Shortness of breath; J40 Bronchitis, not specified as acute or chronic; E11.9 Type 2 diabetes mellitus without complications; I10 Essential (primary) hypertension; E78.00 Pure hypercholesterolemia, unspecified; Z79.899 Other long term (current) drug therapy; Z79.82 Long term (current) use of aspirin; Z88.0 Allergy status to penicillin
CPT/HCPCS: 36415; 36600; 71045; 80053; 81003; 82150; 82550; 82803; 83605; 83690; 83880; 84484; 85025; 85610; 85730; 87040; 93005; 94640; 96374; 99285; J2930; J7030; J7613

== ENCOUNTER 2019-11-24 13:08 | Inpatient (IN) | payer OTHER, MEDICAID, SELFPAY ==
[~2019-11-24] VITALS: Ht 170.2 cm; Wt 69.9 kg
[~2019-11-24 13:08] MED LIST changes: -ASPI-1153 PO; +ASPI-1393 PO; -INSU100V7 IJ; -LEVO750T45 PO; -NEO/5DRO7 OP; -PRED50TA PO; +SSREG SUBCUT
[2019-11-24 13:14] VITALS: BP_SYST 115
--- NOTE | 2019-11-24 13:15 | NUR ---
Patient to ER bed 7 to gown for evaluation. Side rails up.
--- NOTE | 2019-11-24 13:17 | NUR ---
Patient arrived in the ED c/o shortness of breath and abdominal pain that started today. Denied any chest pain. Denied any fevers, chills, nausea or vomiting. Patient is alert and oriented x4, respirations even and unlabored, speaking in full sentences, and ambulating with a steady gait. VSS, pain level 7/10. Informed of the approximate wait time. Instructed to notify ED staff for any changes in condition or worsening of symptoms while waiting to be seen by an ED provider. Patient verbalized understanding.
--- NOTE | 2019-11-24 13:30 | NUR ---
pt getting ABG's drawn at the bedside
[2019-11-24 13:57] LABS: BASOPHILS % (AUTO) 0.2 % (0.0-2.0); EOSINOPHILS % (AUTO) 0.3 % (0.0-4.0); HEMATOCRIT 30.8 % (36-54); HEMOGLOBIN 8.8 g/dL (14.0-18.0); LYMPHOCYTES # (AUTO) 1.1 K/uL (1.0-5.5); LYMPHOCYTES % (AUTO) 14.8 % (20.5-51.5); MEAN CORPUSCULAR HEMOGLOBIN 22 pg (27-31); MEAN CORPUSCULAR HGB CONC 28 % (32-36); MEAN CORPUSCULAR VOLUME 77 fL (79.0-98.0); MONOCYTES % (AUTO) 13.5 % (1.7-9.3); NEUTROPHILS # (AUTO) 5.4 K/uL (1.8-7.7); NEUTROPHILS % (AUTO) 71.2 % (40.0-70.0); PLATELET COUNT (AUTO) 182 K/uL (130-430); RED BLOOD CELL COUNT(AUTO) 4.02 MIL/uL (4.2-6.2); RED CELL DISTRIBUTION WIDTH 18.6 % (9.0-15.0); WHITE BLOOD COUNT (AUTO) 7.6 K/uL (4.8-10.8)
[2019-11-24] MEDS ORDERED: methylPREDNISolone SOD SUCC/PF 62.5 MG/ML VIAL IVP ONE (14:00)
[2019-11-24] MEDS ORDERED: IPRATROPIUM/ALBUTEROL SULFATE 3 ML AMPUL.NEB (DUONEB) INH ONE ×2 (14:00→16:00)
[2019-11-24] MEDS ORDERED: KETOROLAC TROMETHAMINE 30 MG VIAL IVP ONE (14:00)
[2019-11-24 14:15] LABS: CALCIUM 7.9 mg/dL (8.4-11.0); CHLORIDE 101 mmol/L (98-107); CREATININE 0.66 mg/dL (0.55-1.30); GLUCOSE 193 mg/dL (70-99); POTASSIUM 4.7 mmol/L (3.5-5.1); SODIUM SERUM 141 mmol/L (136-145); UREA NITROGEN, BLOOD 28 mg/dL (8-21)
[2019-11-24 14:17] LABS: PROTHROMBIN TIME 10.7 SECS (9.5-12.5)
--- NOTE | 2019-11-24 14:28 | NUR ---
Adwoa and UA collected and sent to the lab
[2019-11-24 14:29] LABS: ALANINE AMINOTRANSFERASE 62 U/L (12-78); ALBUMIN 3.2 g/dL (3.4-4.8); ASPARTATE AMINOTRANSFERASE 31 U/L (10-37); LACTATE DEHYDROGENASE 167 U/L (85-227); TOTAL BILIRUBIN 0.3 mg/dL (0.0-1.0)
[2019-11-24] MEDS ORDERED: MORPHINE 2 MG/ML INJ. SYRINGE IVP ONE (14:45)
[2019-11-24] MEDS ORDERED: NITROGLYCERIN 1 INCH (GM) OINT. TP ONE (14:45)
[2019-11-24 14:51] LABS: C-REACTIVE PROTEIN QUANT 0.5 mg/dL (0-0.5)
--- NOTE | 2019-11-24 15:02 | NUR ---
Administered Morphine Sulfate IVP and Nitro topical as ordered by Dr. Roberson. Patient tolerated the medications well. See eMAR for details.
--- NOTE | 2019-11-24 15:05 | NUR ---
Medication reconciliation done. Belonging's list done.
[2019-11-24 15:10] LABS: BILIRUBIN,URINE NEGATIVE (NEGATIVE); BLOOD, URINE NEGATIVE (NEGATIVE); CLARITY/URINE CLEAR (CLEAR); COLOR,URINE YELLOW (YELLOW); GLUCOSE,URINE 1+ (NEGATIVE); KETONES,URINE NEGATIVE (NEGATIVE); LEUKOCYTE ESTERASE ,URINE NEGATIVE (NEGATIVE); PROTEIN URINE 1+ (NEGATIVE)
[2019-11-24 15:11] LABS: NITRITE, URINE NEGATIVE (NEGATIVE); UROBILINOGEN,URINE 0.2 (0.2-1.0)
[2019-11-24] MEDS ORDERED: ASPIRIN 81 MG TAB.CHEW PO ONE (15:45)
[2019-11-24 16:23] LABS: ANION GAP < 3 (5-15)
[2019-11-24] MEDS ORDERED: IPRATROPIUM/ALBUTEROL SULFATE 3 ML AMPUL.NEB (DUONEB) INH PRN (16:30)
--- NOTE | 2019-11-24 16:48 | NUR ---
ADMITTING ORDERS DONE.
--- NOTE | 2019-11-24 16:49 | NUR ---
Patient will be admitted to care of DR. NICHOLS. Admitted to TELEMETRY unit. Will go to room 132A. Belongings list completed. Complete and up to date summary report printed. SBAR report to be given at bedside with opportunity for questions.
--- NOTE | 2019-11-24 17:06 | NUR ---
ADMISSION NOTE Received patient from ER via millie, received report from REJI YANG. Patient admitted with diagnosis of CHEST PAIN . Patient oriented to hospital routine, call light, toileting and safety-patient verbalized understanding.
[2019-11-24 17:16] VITALS: BP_SYST 116
[2019-11-24 17:25] VITALS: BP_SYST 112
--- NOTE | 2019-11-24 17:26 | NUR ---
CONSULTATION PAGED/CALLED Reason for Consultation: [] CHEST PAIN Person Who was Notified: [] IQRA Consulting Physician: [] DR ACUNA Injection Mold Tooling Technician Specialty: [] CARDIO Ordering Physician: [] Orly ABDALLA
[2019-11-24] MEDS ORDERED: FLU VACC QS2020-21(65UP)/PF 0.7 ML/SYRINGE I.M. PRN (17:30)
--- NOTE | 2019-11-24 18:54 | NUR ---
Closing Note Patient in bed, NAD, eating dinner. Respiratory rate even and unlabored. Peripheral IV flushed and patent. Bed in low and locked position, side rails up x3, call light within reach, bed alarm on, bathroom needs addressed.
--- NOTE | 2019-11-24 19:31 | NUR ---
Dr. Rubio here to see pt.
[2019-11-24] MEDS ORDERED: ACETAMINOPHEN/CODEINE 300 MG-30 MG TABLET PO PRN (19:45)
[2019-11-24] MEDS ORDERED: guaiFENesin/DEXTROMETHORPHAN 10 ML UDC PO PRN (20:00)
--- NOTE | 2019-11-24 20:02 | NUR ---
Dr. Reyes at bedside.
--- NOTE | 2019-11-24 20:15 | NUR ---
Opening notes Pt asleep, easily awakens. Pt desats 83% on room air, pt on O2 6L via mask satting at 96%. IV saline locked L. AC 18G good blood return. Generalized 2+ edema noted. HOB maintained elevated. Call light/items within reach. Safety maintained. Bed low, locked, siderails upx 2. To monitor.
[2019-11-24 20:36] VITALS: BP_SYST 114
[2019-11-24] MEDS: INSULIN REGULAR, HUMAN 100 UNITS/ML, 10 ML VIAL (humuLIN R) SUBCUT PRN (20:55)
--- NOTE | 2019-11-24 20:55 | NUR ---
Med pass Pt asleep, easily awakens, meds explained and passed. Pt verbalized understanding. Blood sugar checked 180, 2 units Reg insulin administered per protocol. HS snacks provided. To monitor.
[2019-11-24] MEDS: ATORVASTATIN 20 MG TABLET PO SCH (21:29)
[2019-11-24] MEDS: INSULIN GLARGINE 100 UNITS/ML 10 ML VIAL SUBCUT SCH (21:29)
[2019-11-24] MEDS: methylPREDNISolone SOD SUCC 40 MG/ML VIAL IVP SCH (21:38)
[2019-11-24] MEDS: CARVEDILOL 6.25 MG TABLET (COREG) PO SCH (21:38)
[2019-11-24] MEDS ORDERED: LEVOFLOXACIN 500 MG/D5W 100 ML IV ONE (22:38)
[2019-11-24] MEDS: LEVOFLOXACIN 500 MG/D5W 100 ML IV SCH (22:40)
--- NOTE | 2019-11-24 23:23 | NUR ---
MD ROSALIA OLMSTEAD FOR CRITICAL LABS DIALED: [phone] SPOKE TO: CHAPINCITO
[2019-11-24 23:47] VITALS: BP_SYST 109
--- NOTE | 2019-11-25 01:10 | NUR ---
Rounds/O2 Pt asleep, no s/s distress noted. Placed pt on O2 2L nasal cannula saturating at 91-94%. To monitor.
--- NOTE | 2019-11-25 04:45 | NUR ---
Rounds Pt asleep, respirations even and unlabored. O2 on via nasal cannula. IV saline lock L. AC 18G clear and patent. Call light within reach. Safety maintained. To monitor.
--- NOTE | 2019-11-25 05:59 | NUR ---
PAGED FOR CONSULT REASON FOR CONSULT:COPD EXACERBATION ORDERING PHYSICIAN: DIALED: [phone] SPOKE TO: AUTOMATED EXCHANGE
[2019-11-25] MEDS: methylPREDNISolone SOD SUCC 40 MG/ML VIAL IVP SCH ×3 (06:00→22:00)
--- NOTE | 2019-11-25 06:25 | NUR ---
Closing notes Pt AAOx4, no s/s distress noted. Pt on O2 via mask O2 sat 99-100%. BS checked 97. IV saline locked L. AC 18G clear and patent. Call light within reach. Safety maintained. To endorse to AM nurse. Addendum: 11/25/19 at 0640 by Telma Garcia RN BS 196 2 units reg insulin given.
[2019-11-25] MEDS: INSULIN REGULAR, HUMAN 100 UNITS/ML, 10 ML VIAL (humuLIN R) SUBCUT PRN ×4 (06:29→21:16)
--- NOTE | 2019-11-25 07:15 | NUR ---
Opening Notes Patient received awake, alert, and able to respond to commands. Patient on 6L simple mask breathing evenly and unlabored. Patient has a left AC 18 saline-locked. Safety precautions enforced.
--- NOTE | 2019-11-25 07:23 | NUR ---
Nutrition Update Evan Scale 18 noted. Pt admitted for Chest pain, COPD Diet: 2gm Na BMI: 24.1 kg/m2 RD to follow per nutrition care standards.
[2019-11-25 07:51] VITALS: BP_SYST 124
[2019-11-25] MEDS: ASPIRIN 81 MG TABLET(ECOTRIN) PO SCH (08:10)
[2019-11-25] MEDS: CARVEDILOL 6.25 MG TABLET (COREG) PO SCH ×2 (08:11→20:57)
[2019-11-25] MEDS: CLOPIDOGREL BISULFATE 75 MG TABLET PO SCH (08:11)
[2019-11-25] MEDS: metFORMIN HCL 500 MG TABLET PO SCH ×2 (08:12→18:02)
[2019-11-25] MEDS: amLODIPine BESYLATE 5 MG TABLET PO SCH (08:12)
[2019-11-25] MEDS: PANTOPRAZOLE SODIUM 40 MG TAB PO SCH (08:12)
[2019-11-25] MEDS: NITROGLYCERIN 0.4 MG/HR PATCH.TD24 TD SCH (08:13)
[2019-11-25] MEDS: IPRATROPIUM/ALBUTEROL SULFATE 3 ML AMPUL.NEB (DUONEB) INH SCH ×5 (08:15→23:40)
[2019-11-25] MEDS: BUDESONIDE 0.5 MG/2 ML AMPUL.NEB INH SCH ×2 (08:15→20:33)
[2019-11-25 08:47] LABS: BASOPHILS % (AUTO) 0.1 % (0.0-2.0); HEMATOCRIT 30.4 % (36-54); HEMOGLOBIN 8.7 g/dL (14.0-18.0); LYMPHOCYTES # (AUTO) 0.7 K/uL (1.0-5.5); LYMPHOCYTES % (AUTO) 13.1 % (20.5-51.5); MEAN CORPUSCULAR HEMOGLOBIN 22 pg (27-31); MEAN CORPUSCULAR HGB CONC 29 % (32-36); MEAN CORPUSCULAR VOLUME 77 fL (79.0-98.0); MONOCYTES # (AUTO) 0.4 K/uL (0.0-1.0); MONOCYTES % (AUTO) 8.2 % (1.7-9.3); NEUTROPHILS # (AUTO) 4.1 K/uL (1.8-7.7); NEUTROPHILS % (AUTO) 78.6 % (40.0-70.0); PLATELET COUNT (AUTO) 174 K/uL (130-430); RED BLOOD CELL COUNT(AUTO) 3.94 MIL/uL (4.2-6.2); RED CELL DISTRIBUTION WIDTH 18.9 % (9.0-15.0); WHITE BLOOD COUNT (AUTO) 5.2 K/uL (4.8-10.8)
[2019-11-25 08:58] LABS: CALCIUM 8.1 mg/dL (8.4-11.0); CHLORIDE 101 mmol/L (98-107); CREATININE 0.91 mg/dL (0.55-1.30); GLUCOSE 229 mg/dL (70-99); POTASSIUM 4.8 mmol/L (3.5-5.1); SODIUM SERUM 141 mmol/L (136-145); UREA NITROGEN, BLOOD 32 mg/dL (8-21)
[2019-11-25 09:06] LABS: ALANINE AMINOTRANSFERASE 52 U/L (12-78); ALBUMIN 3.1 g/dL (3.4-4.8); ASPARTATE AMINOTRANSFERASE 21 U/L (10-37); TOTAL BILIRUBIN 0.3 mg/dL (0.0-1.0)
[2019-11-25 09:16] LABS: ANION GAP < 3 (5-15)
--- NOTE | 2019-11-25 10:00 | NUR ---
RN Rounds Patient in bed resting comfortably at this time, no signs of distress noted. Patient able to communicate needs. Safety precautions enforced.
--- NOTE | 2019-11-25 12:40 | NUR ---
RN Rounds Patient eating independently at this time. No signs of distress noted. Safety precautions enforced.
[2019-11-25 12:56] VITALS: BP_SYST 132
--- NOTE | 2019-11-25 14:00 | NUR ---
RN Rounds Patient resting in bed at this time, no signs of distress noted. Safety precautions enforced.
[2019-11-25] MEDS ORDERED: methylPREDNISolone SOD SUCC 40 MG/ML VIAL ONE (14:14)
[2019-11-25 15:26] VITALS: BP_SYST 121
--- NOTE | 2019-11-25 16:00 | NUR ---
RN Rounds Patient in no signs of distress at this time. Patient does not complain of pain. Safety precautions enforced.
--- NOTE | 2019-11-25 18:00 | NUR ---
RN Rounds Patient eating at this time, no signs of distress noted. Safety precautions enforced.
--- NOTE | 2019-11-25 19:24 | NUR ---
Closing Notes Endorsed to motor grader rough grade RN using SBAR format. No signs of distress noted.
[2019-11-25 20:00] VITALS: BP_SYST 116
--- NOTE | 2019-11-25 20:00 | NUR ---
Opening notes Pt AAOx4, VSS, afebrile. No s/s distress noted. Pt denies pain at this time. IV saline locked L. AC 18G clear and patent. Call light/items within reach. Safety maintained. Bed low, locked, siderails upx 2. To monitor.
[2019-11-25] MEDS: ATORVASTATIN 20 MG TABLET PO SCH (20:57)
[2019-11-25] MEDS: LEVOFLOXACIN 500 MG/D5W 100 ML IV SCH (21:01)
--- NOTE | 2019-11-25 21:16 | NUR ---
Rounds Meds passed. BS checked 242, scheduled Lantus 24 units given to pt. Call light within reach. To monitor.
[2019-11-25] MEDS: INSULIN GLARGINE 100 UNITS/ML 10 ML VIAL SUBCUT SCH (21:17)
--- NOTE | 2019-11-26 00:10 | NUR ---
Rounds Pt asleep, respirations even and unlabored on oxygen. Call light within reach. Safety maintained. To monitor.
[2019-11-26 00:44] VITALS: BP_SYST 122
[2019-11-26] MEDS: IPRATROPIUM/ALBUTEROL SULFATE 3 ML AMPUL.NEB (DUONEB) INH SCH ×6 (03:53→23:18)
--- NOTE | 2019-11-26 04:10 | NUR ---
Rounds Pt asleep, respirations even and unlabored on oxygen. Call light within reach. Safety maintained. To monitor.
[2019-11-26] MEDS: methylPREDNISolone SOD SUCC 40 MG/ML VIAL IVP SCH ×3 (06:00→21:47)
--- NOTE | 2019-11-26 06:30 | NUR ---
Closing notes Pt AAOx4, no s/s distress noted. Pt denies pain at this time, sitting at edge of bed. Blood sugar checked 134. IV saline locked L. AC 18G clear and patent. Pt had a BM this morning. Call light/items within reach. Safety maintained. Bed low, locked, siderails upx 2. To endorse to AM nurse.
[2019-11-26] MEDS: BUDESONIDE 0.5 MG/2 ML AMPUL.NEB INH SCH ×2 (07:10→20:18)
--- NOTE | 2019-11-26 07:25 | NUR ---
OPENING NOTE Patient resting in the bed. No acute distress. On O2 2L/min vis NC. Skin warm and dry to touch. SL intact to LAC, no redness, no swelling, patent. Safety measure maintained. Bed locked in low position, side rails up, bed alarm on. Call light within reached. Will continue to monitor.
[2019-11-26 07:50] VITALS: BP_SYST 118
[2019-11-26] MEDS: PANTOPRAZOLE SODIUM 40 MG TAB PO SCH (09:11)
[2019-11-26] MEDS: metFORMIN HCL 500 MG TABLET PO SCH ×2 (09:11→17:49)
[2019-11-26] MEDS: CARVEDILOL 6.25 MG TABLET (COREG) PO SCH ×2 (09:12→21:45)
[2019-11-26] MEDS: CLOPIDOGREL BISULFATE 75 MG TABLET PO SCH (09:13)
[2019-11-26] MEDS: amLODIPine BESYLATE 5 MG TABLET PO SCH (09:13)
[2019-11-26] MEDS: NITROGLYCERIN 0.4 MG/HR PATCH.TD24 TD SCH (09:13)
[2019-11-26] MEDS: ASPIRIN 81 MG TABLET(ECOTRIN) PO SCH (09:13)
--- NOTE | 2019-11-26 09:22 | NUR ---
AM MED Patient resting in the bed, AM schedule med given, tolerated well. Continue on O2 2L/min via NC. Safety measure maintained. Call light within reached. Continue to monitor.
--- NOTE | 2019-11-26 10:10 | NUR ---
SEEN AND EXAMINED BY BLU CHAVEZ.
[2019-11-26] MEDS: INSULIN REGULAR, HUMAN 100 UNITS/ML, 10 ML VIAL (humuLIN R) SUBCUT PRN (11:33)
--- NOTE | 2019-11-26 11:34 | NUR ---
KQ=937 Humulin R insulin 2 units given per sliding scale. Patient resting in the bed. Continue on O2 2L/min via NC. No acute distress. Safety measure maintained. Call light within reached. Continue to monitor.
[2019-11-26 12:00] VITALS: BP_SYST 114
--- NOTE | 2019-11-26 13:40 | NUR ---
ROUND Patient resting in the bed. No acute distress. Continue on O2 2L/min via NC. Safety measure maintained. Call light within reached. Bed locked in low position, side rails up, bed alarm on. Continue to monitor.
[2019-11-26 15:15] VITALS: BP_SYST 116
--- NOTE | 2019-11-26 15:50 | NUR ---
ROUND Patient resting in the bed. No acute distress. Continue on O2 via NC. Safety measure maintained. Bed locked in low position, side rails up, bed alarm on. Call light within reached. Continue to monitor.
--- NOTE | 2019-11-26 18:45 | NUR ---
CLOSING NOTE Patient resting in the bed. No acute distress. On O2 2L/min vis NC. Skin warm and dry to touch. SL intact to LAC, no redness, no swelling, patent. All needs met. Safety measure maintained. Bed locked in low position, side rails up, bed alarm on. Call light within reached. Will endorse to night nurse.
[2019-11-26 19:45] VITALS: BP_SYST 134
[2019-11-26 20:00] VITALS: BP_SYST 134
[2019-11-26] MEDS: ATORVASTATIN 20 MG TABLET PO SCH (21:46)
[2019-11-26] MEDS: LEVOFLOXACIN 500 MG/D5W 100 ML IV SCH (21:48)
[2019-11-26] MEDS: INSULIN GLARGINE 100 UNITS/ML 10 ML VIAL SUBCUT SCH (22:22)
[2019-11-27] MEDS: IPRATROPIUM/ALBUTEROL SULFATE 3 ML AMPUL.NEB (DUONEB) INH SCH ×6 (03:52→23:22)
[2019-11-27 06:14] LABS: BASOPHILS % (AUTO) 0.2 % (0.0-2.0); HEMATOCRIT 31.6 % (36-54); HEMOGLOBIN 9.1 g/dL (14.0-18.0); LYMPHOCYTES # (AUTO) 0.8 K/uL (1.0-5.5); LYMPHOCYTES % (AUTO) 9.4 % (20.5-51.5); MEAN CORPUSCULAR HEMOGLOBIN 22 pg (27-31); MEAN CORPUSCULAR HGB CONC 29 % (32-36); MEAN CORPUSCULAR VOLUME 75 fL (79.0-98.0); MONOCYTES # (AUTO) 0.1 K/uL (0.0-1.0); MONOCYTES % (AUTO) 1.7 % (1.7-9.3); NEUTROPHILS # (AUTO) 7.3 K/uL (1.8-7.7); NEUTROPHILS % (AUTO) 88.7 % (40.0-70.0); PLATELET COUNT (AUTO) 174 K/uL (130-430); RED BLOOD CELL COUNT(AUTO) 4.19 MIL/uL (4.2-6.2); RED CELL DISTRIBUTION WIDTH 18.8 % (9.0-15.0); WHITE BLOOD COUNT (AUTO) 8.2 K/uL (4.8-10.8)
[2019-11-27 06:29] LABS: ALANINE AMINOTRANSFERASE 32 U/L (12-78); ALBUMIN 2.9 g/dL (3.4-4.8); ANION GAP 4 (5-15); ASPARTATE AMINOTRANSFERASE 15 U/L (10-37); CALCIUM 8.1 mg/dL (8.4-11.0); CHLORIDE 100 mmol/L (98-107); CREATININE 0.91 mg/dL (0.55-1.30); GLUCOSE 165 mg/dL (70-99); POTASSIUM 4.4 mmol/L (3.5-5.1); SODIUM SERUM 140 mmol/L (136-145); TOTAL BILIRUBIN 0.4 mg/dL (0.0-1.0); UREA NITROGEN, BLOOD 36 mg/dL (8-21)
[2019-11-27] MEDS: methylPREDNISolone SOD SUCC 40 MG/ML VIAL IVP SCH ×3 (06:35→21:40)
[2019-11-27] MEDS: INSULIN REGULAR, HUMAN 100 UNITS/ML, 10 ML VIAL (humuLIN R) SUBCUT PRN ×4 (07:14→20:30)
[2019-11-27] MEDS: BUDESONIDE 0.5 MG/2 ML AMPUL.NEB INH SCH ×2 (07:29→20:17)
[2019-11-27 07:50] VITALS: BP_SYST 141
--- NOTE | 2019-11-27 08:00 | NUR ---
NOTE Pt sitting up in bed eating his breakfast. Pt just had breathing treatment. No SOB/resp distress or pain/discomfort noted at this time. Tele unit attached and intact at this time. Left AC IV intact and patent. No needs noted at this time. No needs noted at this time. Call light within reach.
[2019-11-27] MEDS: ASPIRIN 81 MG TABLET(ECOTRIN) PO SCH (08:10)
[2019-11-27] MEDS: PANTOPRAZOLE SODIUM 40 MG TAB PO SCH (08:10)
[2019-11-27] MEDS: amLODIPine BESYLATE 5 MG TABLET PO SCH (08:11)
[2019-11-27] MEDS: metFORMIN HCL 500 MG TABLET PO SCH ×2 (08:11→17:09)
[2019-11-27] MEDS: CARVEDILOL 6.25 MG TABLET (COREG) PO SCH ×2 (08:11→20:24)
[2019-11-27] MEDS: CLOPIDOGREL BISULFATE 75 MG TABLET PO SCH (08:11)
[2019-11-27] MEDS: NITROGLYCERIN 0.4 MG/HR PATCH.TD24 TD SCH (08:12)
--- NOTE | 2019-11-27 11:30 | NUR ---
Note Pt was seen and assessed by Dr Wilson at 0850am at bedside. Pt ambulated with PT and FWW and standby assist. Pt tolerated ambulation well at this time. Pt denies any needs at this time. Pt's call light within reach. Pt has had his O2 on at 3L/nc on all shift.
[2019-11-27 12:00] VITALS: BP_SYST 135
--- NOTE | 2019-11-27 14:40 | NUR ---
Note Pt sitting up in bed with O2 at 3L/nc on watching television. No needs noted at this time. IV in left AC intact and patent. Tele unit attached and intact all shift. Call light within reach.
[2019-11-27 16:00] VITALS: BP_SYST 134
--- NOTE | 2019-11-27 18:20 | NUR ---
Note Pt has been sitting on side of bed for all his meals. Pt has had his O2 on at 3L/nc all shift. Pt uses urinal for voiding. Pt denies any SOB/resp distress or pain/discomfort all shift. IV in left AC intact and patent. Pt was checked on q1' and PRN all shift for needs and care. Pt was maintained with safety precautions all shift. Tele unit attached and intact. No needs noted at this time. Call light within reach. Pt has occasional coughing with productive output.
--- NOTE | 2019-11-27 19:15 | NUR ---
OPENING NOTE BEDSIDE REPORT RECEIVED FROM DAYSHIFT NURSE. PATIENT RECEIVED LYING IN BED, AWAKE, WATCHING TV, NO S/S OF ACUTE DISTRESS NOTED. PATIENT DENIES PAIN, BREATHING IS EVEN AND UNLABORED, HOB RAISED, NASAL CANULA ATTACHED PROPERLY, ON 2L OF OXYGEN. IV SITE IS PATENT, NO SIGNS OF INFILTRATION OR INFECTION NOTED. SKIN WARM AND DRY TO TOUCH, NO S/S OF HYPOGLYCEMIA NOTED. CALL LIGHT WITH PATIENT. BED IS LOCKED AND AT LOWEST POSITION. WILL CONTINUE TO MONITOR.
[2019-11-27 20:00] VITALS: BP_SYST 122
[2019-11-27] MEDS: ATORVASTATIN 20 MG TABLET PO SCH (20:23)
[2019-11-27] MEDS: INSULIN GLARGINE 100 UNITS/ML 10 ML VIAL SUBCUT SCH (20:29)
--- NOTE | 2019-11-27 21:00 | NUR ---
ROUNDS PATIENT IN BED AWAKE, NO SIGNS OF DISCOMFORT. CHEST RISE AND FALL EVEN BILATERALLY, HOB RAISED, NASAL CANULA ATTACHED PROPERLY, ON 2L OF OXYGEN. CALL LIGHT WITH PATIENT. WILL CONTINUE TO MONITOR.
[2019-11-27] MEDS: LEVOFLOXACIN 500 MG/D5W 100 ML IV SCH (21:40)
--- NOTE | 2019-11-27 23:22 | NUR ---
BREATHING TREATMENT PATIENT RECEIVING BREATHING TREATMENT AT THIS TIME. PATIENT TOLERATING WELL. ALL NEEDS MET. CALL LIGHT WITH PATIENT. WILL CONTINUE TO MONITOR.
[2019-11-28] VITALS: BP_SYST 128
--- NOTE | 2019-11-28 01:00 | NUR ---
BM/VOID PATIENT ASSISTED TO BATHROOM AND BACK TO BED, PATIENT HAD BM AND VOIDED. ALL NEEDS MET. CALL LIGHT WITH PATIENT. WILL CONTINUE TO MONITOR.
[2019-11-28] MEDS: IPRATROPIUM/ALBUTEROL SULFATE 3 ML AMPUL.NEB (DUONEB) INH SCH ×4 (03:00→11:29)
--- NOTE | 2019-11-28 03:00 | NUR ---
ROUNDS PATIENT IN BED, ASLEEP. NO S/S OF ACUTE DISTRESS NOTED. BREATHING IS EVEN AND UNLABORED. HOB RAISED, AND NASAL CANULA ATTACHED PROPERLY, ON 1L OF OXYGEN. CALL LIGHT WITH PATIENT. WILL CONTINUE TO MONITOR.
--- NOTE | 2019-11-28 05:00 | NUR ---
ROUNDS PATIENT ASLEEP. NO SIGNS OF DISCOMFORT NOTED. CHEST RISE AND FALL EVEN BILATERALLY. CALL LIGHT WITH PATIENT. WILL CONTINUE TO MONITOR.
[2019-11-28] MEDS: methylPREDNISolone SOD SUCC 40 MG/ML VIAL IVP SCH ×2 (06:03→13:28)
[2019-11-28] MEDS: INSULIN REGULAR, HUMAN 100 UNITS/ML, 10 ML VIAL (humuLIN R) SUBCUT PRN (06:04)
--- NOTE | 2019-11-28 06:59 | NUR ---
CLOSING NOTE PATIENT IN BED RESTING, EYES CLOSED, APPEARS TO BE ASLEEP AT THIS TIME. NO S/S OF ACUTE DISTRESS NOTED. BREATHING IS EVEN AND UNLABORED. IV SITE IS PATENT, NO SIGNS OF INFILTRATION OR INFECTION NOTED. SKIN IS WARM AND DRY TO TOUCH, NO S/S OF HYPOGLYCEMIA NOTED. ALL NEEDS MET THROUGHOUT SHIFT. FALL AND SAFETY PRECAUTIONS MAINTAINED THROUGHOUT SHIFT. WILL CONTINUE TO MONITOR UNTIL PATIENT CARE IS ENDORSED TO ONCOMING DAYSHIFT NURSE.
--- NOTE | 2019-11-28 07:58 | NUR ---
opening notes, received pt in bed, pt is aaox4, denieies pain, no c.o pain , no sob, vitals wnl. no fever. pt on breathing treatment, and o2 1li per nc. safety precaution in place, call light in reach, bed in low position, bad alarm on. will cont to monitor.
[2019-11-28 08:01] VITALS: BP_SYST 134
[2019-11-28] MEDS: ASPIRIN 81 MG TABLET(ECOTRIN) PO SCH (08:03)
[2019-11-28] MEDS: amLODIPine BESYLATE 5 MG TABLET PO SCH (08:03)
[2019-11-28] MEDS: CLOPIDOGREL BISULFATE 75 MG TABLET PO SCH (08:03)
[2019-11-28] MEDS: PANTOPRAZOLE SODIUM 40 MG TAB PO SCH (08:03)
[2019-11-28] MEDS: metFORMIN HCL 500 MG TABLET PO SCH (08:04)
[2019-11-28] MEDS: CARVEDILOL 6.25 MG TABLET (COREG) PO SCH (08:04)
[2019-11-28] MEDS: NITROGLYCERIN 0.4 MG/HR PATCH.TD24 TD SCH (08:09)
[2019-11-28] MEDS: BUDESONIDE 0.5 MG/2 ML AMPUL.NEB INH SCH (08:14)
--- NOTE | 2019-11-28 08:28 | NUR ---
pt went to bathroom with no o2 for #2, pt went back to bed, 02 sat was 86% on room air. pt place back on 1 li nc and o2 sat went up to 93%.
[2019-11-28] MEDS ORDERED: Levaquin PO (12:27)
[2019-11-28] MEDS ORDERED: Medrol dose pack PO (12:29)
[2019-11-28 12:48] VITALS: BP_SYST 135
--- NOTE | 2019-11-28 13:11 | NUR ---
Discharge Planning: DCP faxed pt referral to [facility] [place] (f [phone] p [phone]) PT/OT/Safety Tomer DCP to follow up Addendum: 11/28/19 at 1425 by Martina Auguste DP DCP spoke krystal Levin at [facility] [place] (f [phone] p [phone]) patient accepted
[2019-11-28 13:39] VITALS: BP_SYST 136
--- NOTE | 2019-11-28 15:23 | NUR ---
PT OFFERED FLU VACCINE, PT STATED THAT E WAS GIVEN THE VACCINE ALREADY.
--- NOTE | 2019-11-28 18:15 | NUR ---
D/C Patient Patient given medication reconciliation form and D/C instructions. Exit Care provided. Patient verbalized understanding. MD discussed with patient the results and treatment provided. Ambulatory with steady gait for discharge to home. Patient in stable condition, ID band removed. IV catheter removed, intact and dressing applied, no active bleeding. Rx of LEVAQUIN AND MEDROL given. Patient educated on pain management. All belongings sent with patient. REPORT GIVEN TO FACILITY RN BY NURSE RAMIREZ.
--- NOTE | 2019-12-03 13:58 | NUR ---
DISCHARGE FOLLOW UP CALL: [employer] phoned pt @ [phone] and spoke with patient's nurse, Carlos. Per nurse, pt is "walking fine, being active" and "glad to be back". Pt's nurse stated the patient has an appt with Dr. Martin and their transportation service will take the patient to the MD office. Pt also started with [facility] ([place], p: [phone]) on 11/30 instead of [facility] for his OT/PT/Safety eval. Pt was able to fill prescription and pt has limit his smoking. No further SS call needed.
[2020-01-27] MEDS ORDERED: LEVO750T45 PO (12:16)
[2020-01-27] MEDS ORDERED: METH2TAB PO (12:18)
== END 2019-11-28 16:05 | disposition home health service (06) | DRG 193 ==
LOC: SED 13:08 → STU 16:19
PROVIDERS: ADMIT Family Medicine; ATTEND Family Medicine
DX: J18.9 Pneumonia, unspecified organism (principal); J96.22 Acute and chronic respiratory failure with hypercapnia; J96.21 Acute and chronic respiratory failure with hypoxia; J44.1 Chronic obstructive pulmonary disease with (acute) exacerbation; J44.0 Chronic obstructive pulmonary disease with (acute) lower respiratory infection; E87.2 Acidosis; I24.8 Other forms of acute ischemic heart disease; D64.9 Anemia, unspecified; E78.5 Hyperlipidemia, unspecified; E11.9 Type 2 diabetes mellitus without complications; I25.10 Atherosclerotic heart disease of native coronary artery without angina pectoris; I50.9 Heart failure, unspecified; Z20.828 Contact with and (suspected) exposure to other viral communicable diseases; I11.0 Hypertensive heart disease with heart failure; Z88.0 Allergy status to penicillin; Z79.82 Long term (current) use of aspirin; Z79.899 Other long term (current) drug therapy; Z87.891 Personal history of nicotine dependence; Z95.1 Presence of aortocoronary bypass graft
CPT/HCPCS: 36415; 36600; 71045; 80053; 81003; 82550-TC; 82728; 82803-TC; 82962; 83605; 83615-TC; 83880; 84484; 85025; 85379; 85384-TC; 85610-TC; 85730-TC; 86140; 86886; 86900; 86901; 87040-TC; 87086; 93005; 93306; 94640; 94760; 96374; 96375; 97110-GP; 97116-GP; 97163; 99291; G0378; J1030; J1815; J1885; J1956; J2270; J2930; J7626

== ENCOUNTER 2020-04-25 10:05 | Emergency (ER) | payer OTHER, MEDICAID ==
[~2020-04-25] VITALS: Ht 167.6 cm; Wt 81.6 kg
[~2020-04-25 10:05] MED LIST changes: +LEVO750T45 PO; +PRED20TA PO; -TYC3 PO
[2020-04-25 10:08] VITALS: BP_SYST 161
[2020-04-25 10:37] LABS: BILIRUBIN,URINE NEGATIVE (NEGATIVE); BLOOD, URINE NEGATIVE (NEGATIVE); CLARITY/URINE CLEAR (CLEAR); COLOR,URINE YELLOW (YELLOW); GLUCOSE,URINE 3+ (NEGATIVE); KETONES,URINE NEGATIVE (NEGATIVE); LEUKOCYTE ESTERASE ,URINE NEGATIVE (NEGATIVE); NITRITE, URINE NEGATIVE (NEGATIVE); PH,URINE 6.5 (5.0-8.0); PROTEIN URINE NEGATIVE (NEGATIVE); UROBILINOGEN,URINE 0.2 (0.2-1.0)
[2020-04-25 10:43] LABS: BASOPHILS % (AUTO) 0.5 % (0.0-2.0); EOSINOPHILS # (AUTO) 0.1 K/uL (0.0-0.4); EOSINOPHILS % (AUTO) 1.1 % (0.0-4.0); HEMATOCRIT 29.4 % (36-54); HEMOGLOBIN 8.4 g/dL (14.0-18.0); LYMPHOCYTES # (AUTO) 1.6 K/uL (1.0-5.5); LYMPHOCYTES % (AUTO) 16.7 % (20.5-51.5); MEAN CORPUSCULAR HEMOGLOBIN 21 pg (27-31); MEAN CORPUSCULAR HGB CONC 29 % (32-36); MEAN CORPUSCULAR VOLUME 74 fL (79.0-98.0); MONOCYTES # (AUTO) 1.2 K/uL (0.0-1.0); MONOCYTES % (AUTO) 12.9 % (1.7-9.3); NEUTROPHILS # (AUTO) 6.4 K/uL (1.8-7.7); NEUTROPHILS % (AUTO) 68.8 % (40.0-70.0); PLATELET COUNT (AUTO) 394 K/uL (130-430); RED BLOOD CELL COUNT(AUTO) 3.99 MIL/uL (4.2-6.2); RED CELL DISTRIBUTION WIDTH 20.2 % (9.0-15.0); WHITE BLOOD COUNT (AUTO) 9.4 K/uL (4.8-10.8)
[2020-04-25 10:46] LABS: ANION GAP 1 (5-15); CHLORIDE 102 mmol/L (98-107); CREATININE 0.71 mg/dL (0.55-1.30); GLUCOSE 267 mg/dL (70-99); POTASSIUM 4.8 mmol/L (3.5-5.1); SODIUM SERUM 141 mmol/L (136-145); UREA NITROGEN, BLOOD 20 mg/dL (8-21)
[2020-04-25 10:52] LABS: ALANINE AMINOTRANSFERASE 26 U/L (12-78); ALBUMIN 3.4 g/dL (3.4-4.8); ASPARTATE AMINOTRANSFERASE 30 U/L (10-37); LIPASE 99 U/L (73-393); TOTAL BILIRUBIN 0.3 mg/dL (0.0-1.0)
[2020-04-25 11:02] LABS: BACTERIA,URINE RARE /HPF (None Seen); RBC,URINE NONE SEEN /HPF (0-3); WBC,URINE NONE SEEN /HPF (0-3)
[2020-04-25] MEDS ORDERED: HYDR-4272 PO (12:23)
[2020-04-25] MEDS ORDERED: IBUP-1969 PO (12:23)
[2020-04-25 14:45] VITALS: BP_SYST 138
== END 2020-04-25 14:45 | disposition home or self-care (01) ==
LOC: SED 10:05
DX: K80.50 Calculus of bile duct without cholangitis or cholecystitis without obstruction (principal); I10 Essential (primary) hypertension; E11.9 Type 2 diabetes mellitus without complications; J44.9 Chronic obstructive pulmonary disease, unspecified; Z88.0 Allergy status to penicillin; Z79.899 Other long term (current) drug therapy; Z79.4 Long term (current) use of insulin
CPT/HCPCS: 36415; 76376; 80053; 81000-TC; 83690-TC; 85025; 93005; 99285

== ENCOUNTER 2020-07-15 18:01 | Emergency (ER) | payer OTHER, MEDICAID, SELFPAY ==
[~2020-07-15] VITALS: Ht 170.2 cm; Wt 79.4 kg
[~2020-07-15 18:01] MED LIST changes: -AMLO5TAB4 PO; +HYDR-4272 PO; +IBUP-1969 PO; -LEVO750T45 PO
[2020-07-15 18:03] VITALS: BP_SYST 181
[2020-07-15 18:47] LABS: BASOPHILS % (AUTO) 0.6 % (0.0-2.0); EOSINOPHILS # (AUTO) 0.4 K/uL (0.0-0.4); EOSINOPHILS % (AUTO) 5.5 % (0.0-4.0); HEMATOCRIT 27.3 % (36-54); HEMOGLOBIN 7.8 g/dL (14.0-18.0); LYMPHOCYTES # (AUTO) 1.8 K/uL (1.0-5.5); LYMPHOCYTES % (AUTO) 26.3 % (20.5-51.5); MEAN CORPUSCULAR HEMOGLOBIN 20 pg (27-31); MEAN CORPUSCULAR HGB CONC 29 % (32-36); MEAN CORPUSCULAR VOLUME 70 fL (79.0-98.0); MONOCYTES # (AUTO) 1.1 K/uL (0.0-1.0); MONOCYTES % (AUTO) 15.5 % (1.7-9.3); NEUTROPHILS # (AUTO) 3.6 K/uL (1.8-7.7); NEUTROPHILS % (AUTO) 52.1 % (40.0-70.0); PLATELET COUNT (AUTO) 249 K/uL (130-430); RED BLOOD CELL COUNT(AUTO) 3.92 MIL/uL (4.2-6.2); RED CELL DISTRIBUTION WIDTH 19.9 % (9.0-15.0)
[2020-07-15 18:59] LABS: ANION GAP 3 (5-15); CALCIUM 8.1 mg/dL (8.4-11.0); CHLORIDE 102 mmol/L (98-107); CREATININE 0.78 mg/dL (0.55-1.30); GLUCOSE 143 mg/dL (70-99); POTASSIUM 4.3 mmol/L (3.5-5.1); SODIUM SERUM 141 mmol/L (136-145); UREA NITROGEN, BLOOD 17 mg/dL (8-21)
[2020-07-15 19:05] LABS: ALANINE AMINOTRANSFERASE 16 U/L (12-78); ALBUMIN 3.3 g/dL (3.4-4.8); AMYLASE 53 U/L (0-100); ASPARTATE AMINOTRANSFERASE 12 U/L (10-37); LACTATE DEHYDROGENASE 196 U/L (85-227); LIPASE 121 U/L (73-393); TOTAL BILIRUBIN 0.3 mg/dL (0.0-1.0)
[2020-07-15 19:05] LABS: BILIRUBIN,URINE NEGATIVE (NEGATIVE); BLOOD, URINE NEGATIVE (NEGATIVE); CLARITY/URINE CLEAR (CLEAR); COLOR,URINE YELLOW (YELLOW); GLUCOSE,URINE NEGATIVE (NEGATIVE); KETONES,URINE NEGATIVE (NEGATIVE); LEUKOCYTE ESTERASE ,URINE NEGATIVE (NEGATIVE); NITRITE, URINE NEGATIVE (NEGATIVE); PH,URINE 7.5 (5.0-8.0); PROTEIN URINE TRACE (NEGATIVE); UROBILINOGEN,URINE 0.2 (0.2-1.0)
[2020-07-15 19:18] LABS: C-REACTIVE PROTEIN QUANT < 0.2 mg/dL (0-0.5)
[2020-07-15 19:24] LABS: PROTHROMBIN TIME 10.1 SECS (9.5-12.5)
[2020-07-15] MEDS ORDERED: HYDR-3917 PO (19:25)
[2020-07-15] MEDS ORDERED: IBUP-1971 PO (19:25)
[2020-07-15 19:26] LABS: BACTERIA,URINE RARE /HPF (None Seen); MUCUS,URINE None Seen /LPF (None Seen); RBC,URINE NONE SEEN /HPF (0-3); WBC,URINE 0-3 /HPF (0-3)
[2020-07-15] MEDS ORDERED: IPRATROPIUM BROM 0.5 MG/2.5 ML VIAL.NEB (ATROVENT) INH ONE (20:00)
[2020-07-15] MEDS ORDERED: ALBUTEROL SULFATE 0.083% 2.5 MG/3 ML VIAL.NEB INH ONE ×2 (20:00→20:23)
[2020-07-15] MEDS ORDERED: AMLO5TAB92 PO (20:17)
[2020-07-16 00:18] VITALS: BP_SYST 137
== END 2020-07-16 00:18 | disposition short-term general hospital (02) ==
LOC: SED 18:01
DX: K80.20 Calculus of gallbladder without cholecystitis without obstruction (principal); J44.1 Chronic obstructive pulmonary disease with (acute) exacerbation; I10 Essential (primary) hypertension; E11.9 Type 2 diabetes mellitus without complications; Z88.0 Allergy status to penicillin; Z79.899 Other long term (current) drug therapy; Z20.822 Contact with and (suspected) exposure to COVID-19
CPT/HCPCS: 36415; 71045; 74176; 76376; 80053; 81000; 82150; 83605; 83615; 83690; 83880; 84484; 85025; 85610; 85730; 86140; 87081; 87426; 93005; 94640; 99285; J7613